=== PATIENT | male | born 1930 | race Caucasian/White ===

== ENCOUNTER 2019-12-03 06:48 | Inpatient (IN) | payer MEDICARE ==
[~2019-12-03] VITALS: Ht 165.1 cm; Wt 69.0 kg
[2019-12-03] MEDS ORDERED: OXYC1TAB23 PO (07:39)
[2019-12-03] MEDS ORDERED: HYDR12.55 PO (07:39)
[2019-12-03] MEDS ORDERED: MELO7.5T35 PO (07:39)
[2019-12-03] MEDS ORDERED: OMEP-218 PO (07:39)
[2019-12-03] MEDS ORDERED: BROV15NE NEB (07:39)
[2019-12-03] MEDS ORDERED: LOSA25TA14 PO (07:39)
[2019-12-03] MEDS ORDERED: GABA-843 PO (07:39)
[2019-12-03] MEDS ORDERED: LEVO50TA5 PO (07:39)
[2019-12-03] MEDS ORDERED: ROPI2TAB24 PO (07:39)
[2019-12-03] MEDS ORDERED: SIMV20TA22 PO (07:39)
[2019-12-03] MEDS ORDERED: HYDR-3363 PO (07:39)
[2019-12-03] MEDS ORDERED: QUET1TAB7 PO ×2 (07:39→12:56)
[2019-12-03 07:50] LABS: BASO # 0.1 10^3/uL (0.0-0.2); BASO % 0.9 % (0.0-1.0); EOS # 0.3 10^3/uL (0.0-0.5); EOS % 3.7 % (0.0-3.0); HEMATOCRIT 41.5 % (42.0-52.0); HEMOGLOBIN 12.7 g/dl (13.5-17.5); LYMPH # 1.2 10^3/uL (1.5-5.0); LYMPH % 16.6 % (24.0-44.0); MEAN CORPUSCULAR HEMOGLOBIN 28.6 pg (27.0-33.0); MEAN CORPUSCULAR HGB CONC 30.6 g/dl (32.0-36.5); MEAN CORPUSCULAR VOLUME 93.5 fl (80.0-96.0); MONO # 0.7 10^3/uL (0.0-0.8); MONO % 10.2 % (0.0-5.0); NEUTROPHILS # 4.7 10^3/uL (1.5-8.5); NEUTROPHILS % 68.2 % (36.0-66.0); PLATELET COUNT, AUTOMATED 198 10^3/uL (150-450); RED BLOOD COUNT 4.44 10^6/uL (4.30-6.10); WHITE BLOOD COUNT 6.9 10^3/uL (4.0-10.0)
[2019-12-03 07:56] LABS: ALBUMIN 3.6 GM/DL (3.2-5.2); ALT/SGPT 20 U/L (12-78); BILIRUBIN,DIRECT 0.2 MG/DL (0.0-0.2); BILIRUBIN,TOTAL 0.6 MG/DL (0.2-1.0); BLOOD UREA NITROGEN 30 MG/DL (7-18); CALCIUM LEVEL 8.5 MG/DL (8.8-10.2); CARBON DIOXIDE LEVEL 29 MEQ/L (21-32); CHLORIDE LEVEL 107 MEQ/L (98-107); CK-MB VALUE MASS 3.7 NG/ML (<3.6); CPK CREATINE PHOSPHOKINASE 200 U/L (39-308); CREATININE FOR GFR 1.01 MG/DL (0.70-1.30); GLOMERULAR FILTRATION RATE > 60.0 (>35); GLUCOSE, FASTING 85 MG/DL (70-100); MB/CK RELATIVE INDEX 1.85 (< OR =4); POTASSIUM SERUM 3.4 MEQ/L (3.5-5.1); SODIUM LEVEL 141 MEQ/L (136-145); TOTAL PROTEIN 6.3 GM/DL (6.4-8.2); TROPONIN I < 0.02 NG/ML (< 0.10)
--- NOTE | 2019-12-03 08:16 | REPVR ---
PROCEDURE INFORMATION: Exam: XR Chest, 1 View Exam date and time: 12/03/2019 8:07 AM Age: 89 years old Clinical indication: Cough; Additional info: Dyspnea/cough TECHNIQUE: Imaging protocol: XR of the chest Views: 1 view. COMPARISON: No relevant prior studies available. FINDINGS: Lungs: Bilateral perihilar and left base reticulonodular and ground-glass opacities. Pleural space: Unremarkable. No pleural effusion. No pneumothorax. Heart/Mediastinum: Large hiatal hernia. Vasculature: Atherosclerotic disease of the thoracic aorta. Bones/joints: Severe degenerative changes in the bilateral shoulders. IMPRESSION: Large hiatal hernia. Electronically signed by: Victor Hugo Soria On 12/03/2019 08:16:01 AM
[2019-12-03] MEDS: COMBIVENT RESPIMAT 100-20MCG INHALER 4GM INH SCH ×3 (08:24→09:51)
[2019-12-03] MEDS ORDERED: hydroCHLOROthiazide 12.5 MG CAPSULE PO SCH (09:00)
[2019-12-03] MEDS ORDERED: LOSARTAN 25 MG TAB PO SCH (09:00)
--- NOTE | 2019-12-03 09:50 | REPVR ---
PROCEDURE INFORMATION: Exam: US Duplex Left Lower Extremity Veins, Limited Exam date and time: 12/03/2019 9:21 AM Age: 89 years old Clinical indication: Pain; Leg, upper and leg, lower; Left; Additional info: Swelling TECHNIQUE: Imaging protocol: Real-time Duplex ultrasound of the Left Lower Extremity with 2-D caba scale, color Doppler flow and spectral waveform analysis with image documentation. Limited exam focused on the left lower extremity veins. COMPARISON: No relevant prior studies available. FINDINGS: Left deep veins: The femoral vein is duplicated distally. The common femoral vein, femoral vein, and popliteal vein are incompletely compressible containing eccentric echogenic material consistent with nonocclusive thrombus. The common femoral vein, femoral veins, and popliteal vein are patent. Left superficial veins: The saphenofemoral junction is patent without thrombus. Soft tissues: Unremarkable. IMPRESSION: Findings consistent with nonocclusive thrombus within the left common femoral, femoral, and popliteal veins. Electronically signed by: Jovany Hardin On 12/03/2019 09:49:48 AM
[2019-12-03] MEDS ORDERED: predniSONE 20 MG TAB PO ONE (10:00)
[2019-12-03] MEDS ORDERED: ISOVUE-370 76% 100ML VIAL As Ordered ONE (10:30)
--- NOTE | 2019-12-03 11:17 | REPVR ---
PROCEDURE INFORMATION: Exam: CT Angiography Chest With Contrast Exam date and time: 12/03/2019 10:19 AM Age: 89 years old Clinical indication: Shortness of breath; Additional info: Shortness of breath, DVT left leg TECHNIQUE: Imaging protocol: Computed tomographic angiography of the chest with intravenous contrast. Coronal and sagittal reformats were created and reviewed. 3D rendering (Not supervised by radiologist): MIP and/or 3D reconstructed images were created by the technologist. Radiation optimization: All CT scans at this facility use at least one of these dose optimization techniques: automated exposure control; mA and/or kV adjustment per patient size (includes targeted exams where dose is matched to clinical indication); or iterative reconstruction. Contrast material: ISOVUE 370; Contrast volume: 100 ml; Contrast route: INTRAVENOUS (IV); COMPARISON: CR PORTABLE CHEST X-RAY 12/03/2019 8:00 AM FINDINGS: Limitations: Evaluation is limited by motion. Pulmonary arteries: The central pulmonary arteries are mildly enlarged. Evaluation for pulmonary arterial embolism is limited by motion. Numerous segmental and subsegmental pulmonary arteries cannot be accurately evaluated. No lobar-sized or larger pulmonary embolism is identified. Aorta: Moderate aortic atherosclerosis. Aortic arch great vessel atherosclerotic calcifications. Fusiform dilation of the proximal descending thoracic aorta measuring 3.6 cm in diameter. Thyroid: Atrophic thyroid. Lungs: Evaluation of the lungs is limited by motion. The trachea is unremarkable. Lingular mild compressive atelectasis secondary to the hiatal hernia. Left lower lobe large compressive atelectasis secondary to the hiatal hernia. Right lower lobe moderate compressive atelectasis secondary to the hiatal hernia. Mild bilateral upper lung predominant emphysema. Left upper lobe calcified pulmonary nodule consistent with a benign remote granuloma. Minimal right upper lobe apical centrilobular micronodularity and tree-in-bud opacities. No consolidation. Pleural space: No pleural effusion. No pneumothorax. Heart: Coronary arterial atherosclerotic calcifications are present. Small fat attenuation of the left ventricular apex and interventricular septum suggestive of fibrofatty remodeling of a remote myocardial infarction. No pericardial effusion. Mediastinal space: The esophagus is mildly patulous. There is a very large esophageal hiatal hernia with an intrathoracic stomach. A portion of the transverse colon is also present within the hiatal hernia at the lower chest. Lymph nodes: No enlarged lymph nodes. Gallbladder and bile ducts: Status post cholecystectomy. Pancreas: Atrophic pancreas. Adrenals: Right adrenal 1.5 cm fat attenuation nodule with very small peripheral calcifications may represent an adrenal myelolipoma or the findings may represent sequelae of remote adrenal infection or trauma. Kidneys and ureters: The kidneys are incompletely imaged. Right kidney upper pole indeterminate exophytic 1 cm round lesion measures 38 Hounsfield units. Other hypoattenuating lesions of the imaged right kidney consistent with simple-appearing cysts. Bones/joints: Multilevel degenerative spine disease. Bilateral glenohumeral osteoarthritis. Bilateral glenohumeral joint effusions. Right acromioclavicular joint effusion. Erosion of the right distal clavicular cortex. Soft tissues: Circumscribed fat attenuation masses of the left axilla and right lower thoracic back consistent with lipomas. Right subscapularis muscle atrophy. IMPRESSION: 1. Evaluation for pulmonary arterial embolism is limited by motion. Numerous segmental and subsegmental pulmonary arteries cannot be accurately evaluated. No lobar-sized or larger pulmonary embolism is identified. 2. Very large esophageal hiatal hernia with an intrathoracic stomach and intrathoracic transverse colon. The hiatal hernia creates compressive atelectasis of the lower lungs as described. 3. Pulmonary emphysema. Findings consistent with minimal right apical bronchiolitis. 4. Right acromioclavicular joint effusion. Erosion of the right distal clavicular cortex. The findings are nonspecific. Clinical correlation for a right acromioclavicular inflammatory arthropathy or a septic joint is needed. 5. Fusiform dilation of the proximal descending thoracic aorta measuring 3.6 cm in diameter. 6. Indeterminate right kidney upper pole 1 cm lesion may represent a complex cyst or a solid mass. A renal neoplasm is not excluded. Further evaluation with follow-up renal mass protocol precontrast and postcontrast CT or MRI is recommended. 7. Please see the body of the report for other findings as described. Electronically signed by: Jovany Hardin On 12/03/2019 11:17:43 AM
[2019-12-03 12:00] VITALS: O2SAT 87
[2019-12-03] MEDS ORDERED: IPRATROPIUM 0.5MG/ALBUTEROL 2.5MG INH SOL UD 3ML (DUONEB) NEB PRN (12:15)
[2019-12-03 12:48] LABS: NT-PRO BNP 147 PG/ML (<450)
[2019-12-03] MEDS ORDERED: ROPI2TAB3 PO (12:56)
[2019-12-03 13:10] VITALS: BP 151/73
--- NOTE | 2019-12-03 13:57 | ECGEPIP ---
[facility] - ED Test Date: 2019-12-03 Pat Name: LOREN CHERRY SR Department: Room: - Gender: Male Processing Assistant: : [id number] Requested By: María Elena Booker Order Number: [id number] Reading MD: María Elena Booker Measurements Intervals Zoe Rate: 58 P: 56 IA: 151 QRS: -25 QRSD: 99 T: 51 QT: 410 QTc: 404 Interpretive Statements SINUS BRADYCARDIA WITH SINUS ARRHYTHMIA BORDERLINE LEFT AXIS DEVIATION NONSPECIFIC T-WAVE ABNORMALITY No prior Electronically Signed on 12-03-2019 13:57:13 EDT by María Elena Booker
[2019-12-03 14:00] VITALS: BP 165/82
[2019-12-03] MEDS: APIXABAN 5 MG TAB (ELIQUIS) PO SCH ×2 (14:35→19:44)
[2019-12-03] MEDS: DOXYCYCLINE HYCLATE 100 MG in D5W MINI-BAG PLUS 100 ML IV SCH (14:36)
[2019-12-03] MEDS: methylPREDNISolone 125MG 2ML VIAL IV SCH ×2 (14:36→19:38)
[2019-12-03] MEDS: IPRATROPIUM 0.5MG/ALBUTEROL 2.5MG INH SOL UD 3ML (DUONEB) NEB SCH ×2 (15:13→18:22)
[2019-12-03] MEDS ORDERED: NS 1,000 ML IV ONE (16:30)
[2019-12-03] MEDS ORDERED: amLODIPine 10 MG TAB PO ONE (16:30)
[2019-12-03] MEDS: rOPINIRole 2MG TAB PO SCH ×2 (16:43→19:43)
[2019-12-03] MEDS: NS 1,000 ML IV SCH (17:57)
[2019-12-03] MEDS: FORMOTEROL FUMARATE 20 MCG/2 ML INHALATION SOLUTION (PERFOROMIST) INH SCH (18:22)
[2019-12-03] MEDS: SIMVASTATIN 20 MG TAB PO SCH (19:44)
[2019-12-03] MEDS: QUEtiapine FUMARATE 50 MG TAB PO SCH (19:44)
[2019-12-03] MEDS: OMEPRAZOLE 20 MG CAP PO SCH (19:44)
[2019-12-03 22:00] VITALS: BP 131/73
[2019-12-04] MEDS: DOXYCYCLINE HYCLATE 100 MG in D5W MINI-BAG PLUS 100 ML IV SCH (01:12)
[2019-12-04] MEDS: methylPREDNISolone 125MG 2ML VIAL IV SCH ×4 (01:13→18:17)
[2019-12-04] MEDS: NS 1,000 ML IV SCH (03:08)
[2019-12-04 06:00] VITALS: BP 136/69
[2019-12-04 06:03] LABS: BASO % 0.1 % (0.0-1.0); HEMATOCRIT 37.5 % (42.0-52.0); HEMOGLOBIN 12.1 g/dl (13.5-17.5); LYMPH # 0.9 10^3/uL (1.5-5.0); LYMPH % 10.9 % (24.0-44.0); MEAN CORPUSCULAR HEMOGLOBIN 29.5 pg (27.0-33.0); MEAN CORPUSCULAR HGB CONC 32.3 g/dl (32.0-36.5); MEAN CORPUSCULAR VOLUME 91.5 fl (80.0-96.0); MONO # 0.3 10^3/uL (0.0-0.8); MONO % 3.3 % (0.0-5.0); NEUTROPHILS # 6.9 10^3/uL (1.5-8.5); NEUTROPHILS % 85.1 % (36.0-66.0); PLATELET COUNT, AUTOMATED 199 10^3/uL (150-450); WHITE BLOOD COUNT 8.1 10^3/uL (4.0-10.0)
[2019-12-04 06:25] LABS: BLOOD UREA NITROGEN 31 MG/DL (7-18); CALCIUM LEVEL 8.3 MG/DL (8.8-10.2); CARBON DIOXIDE LEVEL 24 MEQ/L (21-32); CHLORIDE LEVEL 111 MEQ/L (98-107); CREATININE FOR GFR 1.13 MG/DL (0.70-1.30); GLOMERULAR FILTRATION RATE > 60.0 (>35); GLUCOSE, FASTING 155 MG/DL (70-100); POTASSIUM SERUM 4.1 MEQ/L (3.5-5.1); SODIUM LEVEL 140 MEQ/L (136-145)
[2019-12-04] MEDS: FORMOTEROL FUMARATE 20 MCG/2 ML INHALATION SOLUTION (PERFOROMIST) INH SCH ×2 (07:45→19:24)
[2019-12-04] MEDS: IPRATROPIUM 0.5MG/ALBUTEROL 2.5MG INH SOL UD 3ML (DUONEB) NEB SCH ×4 (07:46→19:24)
[2019-12-04] MEDS: OMEPRAZOLE 20 MG CAP PO SCH ×2 (08:55→23:01)
[2019-12-04] MEDS: rOPINIRole 2MG TAB PO SCH ×3 (08:55→23:01)
[2019-12-04] MEDS: APIXABAN 5 MG TAB (ELIQUIS) PO SCH ×2 (08:55→23:01)
[2019-12-04] MEDS: amLODIPine 10 MG TAB PO SCH (08:55)
[2019-12-04] MEDS: QUEtiapine FUMARATE 25 MG TAB PO SCH (08:55)
[2019-12-04] MEDS ORDERED: VANCOMYCIN HCL 1,000 MG, VIAL MATE ADAPTER 1 EACH in D5W 250 ML IV ONE (11:00)
[2019-12-04] MEDS ORDERED: VANCOMYCIN HCL 500 MG in D5W MINI-BAG PLUS 100 ML IV ONE (12:00)
[2019-12-04 14:30] VITALS: BP 116/60
--- NOTE | 2019-12-04 18:15 | IPNPDOC ---
Date Seen The patient was seen on 12/04/19. Progress Note addendum to progress note: right shoulder pain plan: xray right shoulder mri right shoulder ortho consult in if persistent pain VS, I&O, 24H, Fishbone Vital Signs/I&O Vital Signs Date Time Temp Pulse Resp B/P (MAP) Pulse Ox O2 Delivery O2 Flow Rate FiO2 12/04/19 08:55 103 146/70 12/04/19 08:00 3.0 12/04/19 06:00 97.3 18 100 Nasal Cannula I&O- Last 24 Hours up to 6 AM 12/04/19 06:00 Intake Total 720 ml Output Total 1400 ml Balance -680 ml Laboratory Data 24H LABS Laboratory Tests 2 12/03/19 19:58: Lactic Acid Level 4.3*H 12/04/19 00:30: Lactic Acid Followup at 4 Hours 1.9 12/04/19 05:33: Immature Granulocyte % (Auto) 0.6, Neutrophils (%) (Auto) 85.1H, Lymphocytes (%) (Auto) 10.9L, Monocytes (%) (Auto) 3.3, Eosinophils (%) (Auto) 0.0, Basophils (%) (Auto) 0.1, Neutrophils # (Auto) 6.9, Lymphocytes # (Auto) 0.9L, Monocytes # (Auto) 0.3, Eosinophils # (Auto) 0.0, Basophils # (Auto) 0.0, Nucleated Red Blood Cells % (auto) 0.0, Anion Gap 5L, Glomerular Filtration Rate > 60.0, Calcium Level 8.3L CBC/BMP Laboratory Tests 12/04/19 05:33 Microbiology Microbiology 12/04/19 Blood Culture, Received Pending 12/03/19 Blood Culture - Preliminary, Resulted No growth after 24 hours . All specim... 12/03/19 Respiratory Virus Panel (PCR) ([facility]) - Final, Complete Human Rhinovirus/Enterovirus 12/03/19 Blood Culture - Preliminary, Resulted CRISTINA FLEMING MD Dec 04, 2019 18:15
--- NOTE | 2019-12-04 20:17 | REPVR ---
PROCEDURE INFORMATION: Exam: XR Right Humerus Exam date and time: 12/04/2019 7:16 PM Age: 89 years old Clinical indication: Pain; Shoulder; Right; Additional info: Right shoulder pain TECHNIQUE: Imaging protocol: XR Right humerus Views: 2 or more views. COMPARISON: CT ANGIO CHEST 12/03/2019 10:15:01 AM FINDINGS: Bones/joints: There is no fracture or dislocation of the right humerus. There is severe osteoarthritis involving the right glenohumeral joint. There has been resorption of the distal end of the right clavicle. There are bony proliferative changes arising from the right acromioclavicular joint. Soft tissues: Unremarkable. IMPRESSION: 1. No fracture or dislocation of the right humerus. 2. Severe osteoarthritis of the right glenohumeral joint. 3. Resorption of the distal end of the right clavicle, which may be secondary to a surgical resection, posttraumatic osteolysis, or an erosive arthropathy. Electronically signed by: Paolo Willis On 12/04/2019 20:17:33 PM
--- NOTE | 2019-12-04 21:40 | REPVR ---
PROCEDURE INFORMATION: Exam: MR Right Upper Extremity Joint Without Contrast; Shoulder Exam date and time: 12/04/2019 8:46 PM Age: 89 years old Clinical indication: Pain; Shoulder; Right; Patient HX: Very limited exam due to respiratory motion. Best PT could do. Additional info: Right shoulder pain TECHNIQUE: Imaging protocol: MR of the Right upper extremity without contrast. Exam focused on the shoulder. COMPARISON: No relevant prior studies available. FINDINGS: Limitations: Motion artifact severely degrades the image quality of all of the sequences obtained. Bones and cartilage: There is no fracture or dislocation of the right shoulder. There is severe osteoarthritis of the right glenohumeral joint. There are large regions of full-thickness cartilage loss involving the right humeral head and glenoid with associated subchondral edema, subchondral sclerosis, and marginal spurring. There is resorption of the distal end of the right clavicle. Bony proliferative changes are noted arising from the right acromioclavicular joint. Joint spaces: There is a moderate size right glenohumeral joint effusion. Glenoid labrum: Suboptimally evaluated secondary to extensive motion artifact. Bursae: There is a large amount of fluid in the right subacromial subdeltoid bursa. Supraspinatus tendon: There is a high-grade partial intrasubstance tear of the distal anterior fibers of the right supraspinatus tendon, which measures approximately 5 mm in medial to lateral dimension by 5 mm in anterior to posterior dimension (frame 8 of the coronal T2 with fat saturation series 701 and frame 6 of the sagittal T2 with fat saturation series 801). There is increased T2 signal in the supraspinatus tendon and myotendinous junction, which is compatible with a strain (frames 9-13 of the coronal T2 with fat saturation series 701). There is a 14 mm subcortical cyst medial to the footplate insertion of the supraspinatus tendon. Infraspinatus tendon: No obvious tear allowing for extensive motion artifact. There is a 13 mm subcortical cysts medial to the footplate insertion of the infraspinatus tendon. Subscapularis tendon: No obvious tear allowing for extensive motion artifact. Teres minor tendon: No obvious tear allowing for extensive motion artifact. Tendon of biceps brachii: Suboptimally evaluated secondary to extensive motion artifact. Glenohumeral ligaments: Suboptimally evaluated secondary to extensive motion artifact. Coracoacromial ligament: Suboptimally evaluated secondary to extensive motion artifact. Coracohumeral ligament: Suboptimally evaluated secondary to extensive motion artifact. Muscles: There is severe fatty atrophy of the right subscapularis muscle. Soft tissues: There is a 3.4 cm x 3.7 cm x 2.5 cm fluid collection in the soft tissues superior to the right acromioclavicular joint. There is soft tissue swelling and edema along the superior aspect the right shoulder. Other findings: No mass or cyst is noted in the suprascapular notch, spinoglenoid notch, or quadrilateral space. IMPRESSION: 1. High-grade partial intrasubstance tear of the distal anterior fibers of the right supraspinatus tendon, which measures approximately 5 mm in medial to lateral dimension by 5 mm in anterior to posterior dimension and a strain of the supraspinatus tendon and myotendinous junction. 2. 14 mm subcortical cyst medial to the footplate insertion of the right supraspinatus tendon. 3. Severe osteoarthritis of the right glenohumeral joint and a moderate size right glenohumeral joint effusion. 4. Large amount of fluid in the right subacromial subdeltoid bursa, which may represent subacromial subdeltoid bursitis. 5. 3.4 cm x 3.7 cm x 2.5 cm fluid collection in the soft tissues superior to the right acromioclavicular joint and there is soft tissue swelling and edema along the superior aspect of the right shoulder. 6. Resorption of the distal end of the right clavicle, which may be secondary to a surgical resection, posttraumatic osteolysis, or an erosive arthropathy. 7. Severe fatty atrophy of the right subscapularis muscle. * NOTE: Extensive motion artifact severely degrades the image quality of all of the sequences obtained. Electronically signed by: Paolo Willis On 12/04/2019 21:40:07 PM
[2019-12-04 22:00] VITALS: BP 110/70
[2019-12-04] MEDS: SIMVASTATIN 20 MG TAB PO SCH (23:01)
[2019-12-04] MEDS: QUEtiapine FUMARATE 50 MG TAB PO SCH (23:01)
[2019-12-05] MEDS: methylPREDNISolone 125MG 2ML VIAL IV SCH ×3 (01:45→18:26)
[2019-12-05 06:00] VITALS: BP 98/60
[2019-12-05 06:13] LABS: BASO % 0.1 % (0.0-1.0); HEMOGLOBIN 12.2 g/dl (13.5-17.5); LYMPH # 0.8 10^3/uL (1.5-5.0); LYMPH % 5.6 % (24.0-44.0); MEAN CORPUSCULAR HEMOGLOBIN 29.4 pg (27.0-33.0); MEAN CORPUSCULAR HGB CONC 32.1 g/dl (32.0-36.5); MEAN CORPUSCULAR VOLUME 91.6 fl (80.0-96.0); MONO # 0.5 10^3/uL (0.0-0.8); MONO % 3.6 % (0.0-5.0); NEUTROPHILS # 12.2 10^3/uL (1.5-8.5); PLATELET COUNT, AUTOMATED 244 10^3/uL (150-450); RED BLOOD COUNT 4.15 10^6/uL (4.30-6.10); WHITE BLOOD COUNT 13.5 10^3/uL (4.0-10.0)
[2019-12-05 06:40] LABS: BLOOD UREA NITROGEN 36 MG/DL (7-18); CALCIUM LEVEL 8.5 MG/DL (8.8-10.2); CARBON DIOXIDE LEVEL 27 MEQ/L (21-32); CHLORIDE LEVEL 109 MEQ/L (98-107); CREATININE FOR GFR 1.16 MG/DL (0.70-1.30); GLOMERULAR FILTRATION RATE > 60.0 (>35); GLUCOSE, FASTING 142 MG/DL (70-100); POTASSIUM SERUM 3.8 MEQ/L (3.5-5.1); SODIUM LEVEL 142 MEQ/L (136-145)
[2019-12-05 06:43] VITALS: BP 140/72
[2019-12-05] MEDS: IPRATROPIUM 0.5MG/ALBUTEROL 2.5MG INH SOL UD 3ML (DUONEB) NEB SCH ×4 (07:28→19:38)
[2019-12-05] MEDS: FORMOTEROL FUMARATE 20 MCG/2 ML INHALATION SOLUTION (PERFOROMIST) INH SCH ×2 (07:28→19:38)
[2019-12-05] MEDS ORDERED: FLUBLOK(EGG FREE)(QUAD)INFLUENZA VACC 0.5ML SYRINGE 18YRS & OLDER IM ONE (09:00)
[2019-12-05] MEDS: rOPINIRole 2MG TAB PO SCH ×3 (09:03→22:13)
[2019-12-05] MEDS: APIXABAN 5 MG TAB (ELIQUIS) PO SCH ×2 (09:04→22:13)
[2019-12-05] MEDS: OMEPRAZOLE 20 MG CAP PO SCH ×2 (09:05→22:13)
[2019-12-05] MEDS: QUEtiapine FUMARATE 25 MG TAB PO SCH (09:09)
[2019-12-05] MEDS: amLODIPine 10 MG TAB PO SCH (09:09)
[2019-12-05] MEDS ORDERED: VANCOMYCIN HCL 750 MG, VIAL MATE ADAPTER 1 EACH in D5W 250 ML IV SCH (11:00)
[2019-12-05] MEDS ORDERED: VANCOMYCIN HCL 500 MG in D5W MINI-BAG PLUS 100 ML IV SCH (12:00)
[2019-12-05 14:00] VITALS: BP 142/72
--- NOTE | 2019-12-05 21:12 | IPNPDOC ---
Subjective Date Seen The patient was seen on 12/05/19. Subjective Chief Complaint/HPI feels much better, Says sob much improved and also says leg swelling much improved. He feels like he will be able to walk today. Objective Physical Examination General Exam: Positive: Alert, Cooperative, No Acute Distress Eye Exam: Positive: PERRLA, Conjunctiva & lids normal, EOMI; Negative: Sclera icteric ENT Exam: Positive: Atraumatic, Mucous membr. moist/pink, Pharynx Normal Neck Exam: Positive: Supple; Negative: JVD, thyromegaly Chest Exam: Positive: Rhonchi, Wheezing Heart Exam: Positive: Rate Normal, Regular Rhythm, Normal S1, Normal S2; Negative: Murmurs, Rubs Abdomen Exam: Positive: Normal bowel sounds, Soft; Negative: Tenderness, Hepatospenomegaly Extremity Exam: Positive: Edema; Negative: Clubbing, Cyanosis Skin Exam: Positive: Nl turgor and temperature; Negative: Rash, Breakdown Assessment /Plan Assessment 89 year old male with COPD, chronic respiratory failure with hypoxia, 3l oxygen at home, HTN, HLD, OA, Prostate cancer, chronic right shoulder pain and swelling, 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 He was found to have Rhino virus respiratory tract infection, COPD exacerbation and acute Left leg DVT. Acute DVT started on AC Eliquis COPD exacerbation due to viral resp tract infection on solumedrol, formoterol, duonebs. on Vancomycin at present. Lactic acidosis due to increased work of breathing. Chronic respiratory failure with hypoxia at baseline oxygen. Right shoulder pain and swelling MRI noted has OA, bursitis and tear of supraspinatus tendon all looks chronic patient reports that at one time surgery was offered but was told high risk so he did not want to pursue it. will discuss with ortho for now pain control with tylenol. Hypertension amlodipine Hyperlipidemia statin Positive blood cultures1/3 bottles gm +ve rods and gm+ve cocci in cluster probably contaminant will continue vancomycin till final cultures are out. Restless legs ropinirole Anxiety/ insomnia seroquel Plan/VTE VTE Prophylaxis Ordered?: Yes VS, I&O, 24H, Fishbone Vital Signs/I&O Vital Signs Date Time Temp Pulse Resp B/P (MAP) Pulse Ox O2 Delivery O2 Flow Rate FiO2 12/05/19 14:00 97.7 83 20 142/72 (95) 97 Nasal Cannula 3.0 I&O- Last 24 Hours up to 6 AM 12/05/19 07:00 Intake Total 3510 ml Output Total 1445 ml Balance 2065 ml Laboratory Data 24H LABS Laboratory Tests 2 12/05/19 05:41: Immature Granulocyte % (Auto) 0.7, Neutrophils (%) (Auto) 90.0H, Lymphocytes (%) (Auto) 5.6L, Monocytes (%) (Auto) 3.6, Eosinophils (%) (Auto) 0.0, Basophils (%) (Auto) 0.1, Neutrophils # (Auto) 12.2H, Lymphocytes # (Auto) 0.8L, Monocytes # (Auto) 0.5, Eosinophils # (Auto) 0.0, Basophils # (Auto) 0.0, Nucleated Red Blood Cells % (auto) 0.0, Anion Gap 6L, Glomerular Filtration Rate > 60.0, C alcium Level 8.5L CBC/BMP Laboratory Tests 12/05/19 05:41 Microbiology Microbiology 12/04/19 Blood Culture - Preliminary, Resulted No growth after 24 hours . All specim... 12/03/19 Blood Culture - Preliminary, Resulted No Growth after 48 hours. All Specime... 12/03/19 Respiratory Virus Panel (PCR) ([facility]) - Final, Complete Human Rhinovirus/Enterovirus 12/03/19 Blood Culture - Preliminary, Resulted JACQUELINE DILLON MD Dec 05, 2019 21:12
[2019-12-05] MEDS ORDERED: AZITHROMYCIN 250MG TABLET PO SCH (21:15)
[2019-12-05 22:00] VITALS: BP 106/69
[2019-12-05] MEDS: QUEtiapine FUMARATE 50 MG TAB PO SCH (22:13)
[2019-12-05] MEDS: SIMVASTATIN 20 MG TAB PO SCH (22:14)
[2019-12-05] MEDS: ACETAMINOPHEN 500 MG TAB PO SCH (22:18)
[2019-12-06 06:00] VITALS: BP 105/71
[2019-12-06] MEDS: methylPREDNISolone 125MG 2ML VIAL IV SCH (07:01)
[2019-12-06 07:32] LABS: BASO % 0.1 % (0.0-1.0); HEMATOCRIT 38.3 % (42.0-52.0); HEMOGLOBIN 12.1 g/dl (13.5-17.5); LYMPH # 0.8 10^3/uL (1.5-5.0); LYMPH % 7.1 % (24.0-44.0); MEAN CORPUSCULAR HEMOGLOBIN 28.8 pg (27.0-33.0); MEAN CORPUSCULAR HGB CONC 31.6 g/dl (32.0-36.5); MEAN CORPUSCULAR VOLUME 91.2 fl (80.0-96.0); MONO # 0.5 10^3/uL (0.0-0.8); MONO % 4.3 % (0.0-5.0); NEUTROPHILS # 9.6 10^3/uL (1.5-8.5); NEUTROPHILS % 87.4 % (36.0-66.0); PLATELET COUNT, AUTOMATED 238 10^3/uL (150-450)
[2019-12-06] MEDS: FORMOTEROL FUMARATE 20 MCG/2 ML INHALATION SOLUTION (PERFOROMIST) INH SCH (07:42)
[2019-12-06] MEDS: IPRATROPIUM 0.5MG/ALBUTEROL 2.5MG INH SOL UD 3ML (DUONEB) NEB SCH (07:45)
[2019-12-06 07:54] LABS: BLOOD UREA NITROGEN 48 MG/DL (7-18); CALCIUM LEVEL 8.7 MG/DL (8.8-10.2); CARBON DIOXIDE LEVEL 27 MEQ/L (21-32); CHLORIDE LEVEL 112 MEQ/L (98-107); CREATININE FOR GFR 1.06 MG/DL (0.70-1.30); GLOMERULAR FILTRATION RATE > 60.0 (>35); GLUCOSE, FASTING 126 MG/DL (70-100); POTASSIUM SERUM 3.9 MEQ/L (3.5-5.1); SODIUM LEVEL 147 MEQ/L (136-145)
[2019-12-06] MEDS: OMEPRAZOLE 20 MG CAP PO SCH (09:09)
[2019-12-06] MEDS: APIXABAN 5 MG TAB (ELIQUIS) PO SCH (09:09)
[2019-12-06] MEDS: QUEtiapine FUMARATE 25 MG TAB PO SCH (09:10)
[2019-12-06] MEDS: rOPINIRole 2MG TAB PO SCH (09:10)
[2019-12-06] MEDS: ACETAMINOPHEN 500 MG TAB PO SCH (09:11)
[2019-12-06 09:12] VITALS: BP 175/81
[2019-12-06] MEDS: amLODIPine 10 MG TAB PO SCH (09:12)
--- NOTE | 2019-12-06 10:14 | HPE ---
DATE OF ADMISSION: 12/03/2019 CHIEF COMPLAINT: Shortness of breath. 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 He denies any headaches, sore throat, nausea, vomiting, abdominal pain, chest pain, pressure or tightness, palpitations, lightheadedness or dizziness. Despite using 3 liters of oxygen and inhalers at home, he has had no improvement. He has also noted increasing left lower extremity edema and pain when he ambulates. Noticed increase in swelling and redness, prompting him to come into the emergency room. At baseline, he is able to walk from the kitchen to the bedroom all on the first floor. He does not do much at home and has someone to help him from 10 a.m. to noontime every day in order to get him bathed, make his bed and clean the house. The patient has a daughter who is the healthcare proxy. He otherwise has no other new complaints. Denies bright red blood per rectum, melena, black tarry stools. Denies dysuria, urgency, frequency, fever, chills or flank pain. All other systems, 12-point systems obtained all of which are negative. PAST MEDICAL HISTORY: 1. Deep venous thrombosis (DVT) prophylaxis in 2006. 2. Left-sided sciatica. 3. Leg cramps. 4. Prostate cancer 5. Asthma 6. Hypertension. 7. Chronic obstructive pulmonary disease (COPD). 8. Depression 9. Osteoarthritis bilateral shoulders, knees. 10. Esophageal hernia. 11. Right AC effusion. 12. Right kidney lesion. 13. Abnormal electrocardiogram (EKG) with LAD. 14. Active tobacco use. 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 Quit tobacco in 2002 17. Hypothyroidism. 18. 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 FAMILY HISTORY: Father during [place], had hypertension and cancer. Mother of chronic obstructive pulmonary disease (COPD). ALLERGIES: CODIENE AND DARVON HOME MEDICATIONS: Gabapentin 300 mg daily, Hydrochlorothiazide 12.5 mg daily, hydroxyzine 25m g b.i.d., Synthroid 50 mcg daily, levothyroxine 50 mcg daily, losartan 25 mg daily, meloxicam 7.5 mg, omeprazole 20 mg b.i.d., Percocet one tab 5/325 mg as needed, quetiapine 25 mg daily, simvastatin 20 mg daily, Brovana inhaled b.i.d., ropinirole 2 mg daily. SOCIAL HISTORY: Previously smoked and chewed tobacco, quit in 2002 when he was told that his toe was blue and would fall off if he did not stop smoking. Healthcare proxy is his daughter, Shireen Garay, phone number is [phone]. No alcohol use. 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 Family history as above. REVIEW OF SYSTEMS: Per history of present illness, 12-point system otherwise negative. PHYSICAL EXAMINATION: Temperature 97.7, pulse 66, respiratory rate 24, blood pressure 123/50, 87% on 3 liters nasal canula. General: The patient is awake, alert and oriented to person, place and time, answers questions appropriately. No conversational dyspnea. The patient has dentures. No jugular venous distention (JVD), thyromegaly or cervical lymphadenopathy. Lungs are diminished, prolonged expiration. Bilateral wheezing. Heart: S1, S2, sinus rhythm. No murmurs, rubs or gallops. Abdomen: Soft, nontender. Positive bowel sounds. Extremities: Left lower extremity edematous, some erythema, chronic venous changes. Right lower extremity trace edema. Right shoulder some joint effusion at the AC joint. LABORATORY DATA: White count 6.9, hemoglobin 12, hematocrit 41, platelet count 198. Sodium 141, potassium 3.4, chloride 107, bicarbonate 29, BUN 30, creatinine 1, glucose 85, calcium of 8.5. Total bilirubin is 0.6, direct bilirubin is 0.2, AST 16, ALT 20, alkaline phosphatase 111. CK 200, MB fraction 3.7. Troponin less than 0.02, total protein of 6.3. Respiratory panel: Human rhinovirus/enterovirus. Blood cultures pending. CT chest: No lobar size or larger pulmonary embolus (PE), very large esophageal hiatal hernia with compressive atelectasis of the lower lungs. Pulmonary emphysema. Right apical bronchiolitis. Right AC joint effusion. Fusiform dilation of proximal descending thoracic aorta, 3.6 cm. Indeterminate right kidney pole 1 cm lesion, could be cyst or mass. Renal neoplasm is excluded. Follow up renal mass protocol with pre and post contrast CT or MRI. ASSESSMENT AND PLAN: This is an 89-year-old male with history of chronic obstructive pulmonary disease (COPD), asthma, hypertension, depression, left- sided sciatica, leg cramps, prostate cancer, presents to the emergency room with 2 to 3 week worsening shortness of breath, cough productive of sputum, no fevers, chills and a runny nose, along with a left lower extremity swelling edema and pain with ambulation, found to have a left lower extremity deep venous thrombosis (DVT) on vascular ultrasound showing nonocclusive thrombus within the left common femoral, femoral and popliteal veins. ACTIVE ISSUES ARE FOLLOWS: 1. Acute chronic obstructive pulmonary disease (COPD) exacerbation. 2. Chronic hypoxic respiratory failure. 3. Left common femoral, femoral and popliteal vein nonocclusive thrombus. 4. Deep venous thrombosis (DVT). 5. Renal mass, 1 cm cyst versus solid, needs workup. 6. Right acromioclavicular (AC) joint effusion. 7. Human rhinovirus/enterovirus viral infection. 8. History of tobacco abuse with peripheral arterial disease. 9. History of prostate cancer, status post prostatectomy. 10. Depression. 11. Chronic left-sided sciatica. 12. Restless leg syndrome. 13. Hypertension. 14. Abnormal electrocardiogram (EKG) with left axis deviation. PLAN: The patient will be admitted to medical-surgical floor. He will be continued on Solu-Medrol intravenously q 6 hours, nebulizer treatments q.i.d. and q one to two hours for shortness of breath, doxycycline for antibiotics, titrate oxygen levels from 88 to 92%. For the patient's deep venous thrombosis (DVT), he will be given Eliquis renally dosed if needed. If persistent pain or the patient's leg becomes cyanotic, may need to have vascular surgery to see if thrombectomy is warranted. At this time, the patient has a large esophageal hiatal hernia. He will be continued on his home medications of proton pump inhibitor. He is started on anticoagulation, Eliquis, to be renally dosed. He may be resumed on his Synthroid, losartan, simvastatin and Brovana and ropinirole as well. Healthcare proxy is the patient's daughter, EASTON
--- NOTE | 2019-12-06 10:16 | IPN ---
DATE: 12/04/2019 SUBJECTIVE: Overnight no fever or chills, continues to have cough productive of yellow-green sputum. Shortness of breath is slightly improved. No pain in the left lower extremity. No other issues per nursing. PHYSICAL EXAMINATION: VITAL SIGNS: Temperature is 97.3 pulse is 70, respiratory rate is 18, blood pressure is 136/69, 100% on 3 liters nasal cannula. GENERAL: The patient is awake, alert and oriented x3, answering questions appropriately. No use of respiratory or accessory muscle, nasal flaring or tracheal deviation. NECK: No JVD. HEENT: Patient has some rhinorrhea present at the bedside and blowing his nose. LUNGS: Diminished, bilateral wheezing, prolonged expiration. HEART: S1 and S2, sinus rhythm. ABDOMEN: Soft, nontender and nondistended. EXTREMITIES: Left lower extremity is much more edematous than the right. No erythema. MUSCULOSKELETAL: Left hand 2nd, 3rd, and 4th digits amputated with DIP amputations due to traumatic injury. Respiratory panel: Rhinovirus. Blood culture one of two sets of blood cultures gram positive cocci in clusters. LABORATORY DATA: White count is 8, hemoglobin is 12, hematocrit is 37, platelet count is 199,000. Sodium 140, potassium 4, chloride 111, bicarbonate 24, BUN 31, creatinine 1.1, glucose is 155, lactic acid 1.9. Microbiology: Respiratory panel, human Rhinovirus one of two sets, blood culture gram positive cocci. CT of chest: No pulmonary embolism. Right kidney lesion may be a complex cyst or a mass. Renal neoplasm excluded. Renal mass protocol pre-contrast and post- contrast CT or MRI. Descending thoracic fusiform dilation 3.6 cm, erosion of the right shoulder. ASSESSMENT AND PLAN: An 89-year-old admitted for COPD exacerbation, left lower extremity DVT, history of DVT, previously on warfarin, left total knee replacement, prostate cancer with prostatectomy, hernia repair, appendectomy, traumatic amputation of the left digits of the hand. IMPRESSION: 1. COPD exacerbation. 2. Left lower extremity DVT. 3. Lactic acidosis, resolved. 4. History of prostate cancer status post prostatectomy. 5. Gait abnormality. 6. Positive blood culture for gram positive cocci in clusters. PLAN: Patient is empiric Vancomycin until blood culture results are finalized. He is on doxycycline for COPD exacerbation, Solumedrol, diuretics have been held due to lactic acidosis, he is continued on Eliquis loading dose 10 b.i.d. and then 5 b.i.d. on the for lower extremity DVT. ARU has been consulted. He is resumed on all of his other home medications. [facility]
[2019-12-06] MEDS ORDERED: PRED10TA2 PO (10:45)
[2019-12-06] MEDS ORDERED: DOXY-350 PO (10:45)
[2019-12-06] MEDS ORDERED: ACET-683 PO (10:45)
[2019-12-06] MEDS ORDERED: ELIQ5TAB PO (10:45)
--- NOTE | 2019-12-06 15:55 | DS.PDOC ---
Discharge Summary General Date of Admission Dec 03, 2019 at 12:08 Date of Discharge 12/06/19 Discharge Summary PROCEDURES PERFORMED DURING STAY: [None]. DISCHARGE DIAGNOSES: Acute left leg DVT Respiratory viral infection with Human rhinovirus COPD exacerbation Lacticacidosis Right shoulder rotator cuff tear, bursitis Positive blood cultures contaminant SECONDARY DIAGNOSIS: Chronic respiratory failure with hypoxia Hypertension HLD RLS Anxiety/ insomnia OA COMPLICATIONS/CHIEF COMPLAINT: Copd Exacerbation Dvt. HOSPITAL COURSE: 89 year old male with COPD, chronic respiratory failure with hypoxia, 3l oxygen at home, HTN, HLD, OA, Prostate cancer, chronic right shoulder pain and swelling, 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 He was found to have Rhino virus respiratory tract infection, COPD exacerbation and acute Left leg DVT. Acute DVT started on AC Eliquis COPD exacerbation due to viral resp tract infection Prednisone taper, formoterol, duonebs. Doxycycline Lactic acidosis due to increased work of breathing. Chronic respiratory failure with hypoxia at baseline oxygen. Right shoulder pain and swelling Chronic rotator cuff tear with bursitis, OA MRI noted has OA, bursitis and tear of supraspinatus tendon all looks chronic patient reports that at one time surgery was offered but was told high risk so he did not want to pursue it. discussed with ortho Dr Morales. Will refer to ortho clinic. pain controlled with tylenol, meloxicam, gabapentin, percocet Hypertension continue losartan and HCTZ. Hyperlipidemia statin Positive blood cultures1/3 bottles gm +ve rods and gm+ve cocci in cluster Staph hominis. probably contaminant Restless legs ropinirole Anxiety/ insomnia seroquel DISCHARGE MEDICATIONS: Please see below. ALLERGIES: Please see below. PHYSICAL EXAMINATION ON DISCHARGE: VITAL SIGNS: Please see below. General Exam: Positive: Alert, Cooperative, No Acute Distress Eye Exam: Positive: PERRLA, Conjunctiva & lids normal, EOMI; Negative: Sclera icteric ENT Exam: Positive: Atraumatic, Mucous membr. moist/pink, Pharynx Normal Neck Exam: Positive: Supple; Negative: JVD, thyromegaly Chest Exam: Positive: Rhonchi, Wheezing Heart Exam: Positive: Rate Normal, Regular Rhythm, Normal S1, Normal S2; Negative: Murmurs, Rubs Abdomen Exam: Positive: Normal bowel sounds, Soft; Negative: Tenderness, Hepatosplenomegaly Extremity Exam: Positive: Edema; Negative: Clubbing, Cyanosis Skin Exam: Positive: Nl turgor and temperature; Negative: Rash, Breakdown LABORATORY DATA: Please see below. ACTIVITY: [As tolerated]. DIET: As tolerated DISPOSITION: 01 Home, Self-Care. DISCHARGE INSTRUCTIONS: PMD in 2 weeks ITEMS TO FOLLOWUP ON ON OUTPATIENT: Final blood cultures DISCHARGE CONDITION: [Stable]. TIME SPENT ON DISCHARGE: 35 minutes. Vital Signs/I&Os Vital Signs Date Time Temp Pulse Resp B/P (MAP) Pulse Ox O2 Delivery O2 Flow Rate FiO2 12/06/19 09:12 97 175/81 12/06/19 09:00 3.0 12/06/19 06:00 97.5 19 97 Nasal Cannula I&O- Last 24 Hours up to 6 AM 12/06/19 06:00 Intake Total 2505 ml Output Total 275 ml Balance 2230 ml Laboratory Data Labs 24H Laboratory Tests 2 12/06/19 07:18: Immature Granulocyte % (Auto) 1.1, Neutrophils (%) (Auto) 87.4H, Lymphocytes (%) (Auto) 7.1L, Monocytes (%) (Auto) 4.3, Eosinophils (%) (Auto) 0.0, Basophils (%) (Auto) 0.1, Neutrophils # (Auto) 9.6H, Lymphocytes # (Auto) 0.8L, Monocytes # (Auto) 0.5, Eosinophils # (Auto) 0.0, Basophils # (Auto) 0.0, Nucleated Red Blood Cells % (auto) 0.0, Anion Gap 8, Glomerular Filtration Rate > 60.0, Calcium Level 8.7L CBC/BMP Laboratory Tests 12/06/19 07:18 Microbiology Microbiology 12/04/19 Blood Culture - Preliminary, Resulted No Growth after 48 hours. All Specime... 12/03/19 Blood Culture - Preliminary, Resulted No Growth after 72 hours. All specime... 12/03/19 Respiratory Virus Panel (PCR) ([facility]) - Final, Complete Human Rhinovirus/Enterovirus 12/03/19 Blood Culture - Preliminary, Resulted Staphylococcus Hominis Ssp Michael Discharge Medications Scheduled Acetaminophen (Acetaminophen) 500 Mg Tablet, 1,000 MG PO BID Apixaban (Eliquis) 5 Mg Tablet, 5 MG PO ASDIRECTED Take 2 tabs twice a day for 3 days then take 1 tab twice a day to continue Arformoterol Tartrate (Brovana) 15 Mcg/2 Ml Vial.neb, 1 VIAL NEB BID, (Reported) Doxycycline Monohydrate (Doxycycline) 100 Mg Capsule, 100 MG PO BID Gabapentin (Gabapentin) 300 Mg Capsule, 300 MG PO DAILY, (Reported) Hydrochlorothiazide (Hydrochlorothiazide) 12.5 Mg Tablet, 12.5 MG PO DAILY, (Reported) Hydroxyzine HCl (Hydroxyzine HCl) 25 Mg Tablet, 25 MG PO BID, (Reported) Levothyroxine Sodium (Levothyroxine Sodium) 50 Mcg Tablet, 50 MCG PO DAILY, (Reported) Losartan Potassium (Losartan Potassium) 25 Mg Tablet, 25 MG PO DAILY, (Reported) Meloxicam (Meloxicam) 7.5 Mg Tablet, 7.5 MG PO DAILY, (Reported) Omeprazole (Omeprazole) 20 Mg Capsule.dr, 20 MG PO BID, (Reported) Prednisone (Prednisone) 10 Mg Tablet, 10 MG PO TAPER Take 4 tabs daily x 3 days, then 3 tabs daily x 3 days, then 2 tabs daily x 3 days, then 1 tab daily x 3 days and stop Quetiapine Fumarate (Quetiapine Fumarate) 25 Mg Tablet, 25 MG PO DAILY, (Reported) Quetiapine Fumarate (Quetiapine Fumarate) 25 Mg Tablet, 50 MG PO QHS, (Reported) Ropinirole HCl (Ropinirole HCl) 2 Mg Tablet, 2 MG PO TID, (Reported) Simvastatin (Simvastatin) 20 Mg Tablet, 20 MG PO QHS, (Reported) Scheduled PRN Oxycodone HCl/Acetaminophen (Oxycodone-Acetaminophen 5-325) 1 Each Tablet, 1 TAB PO PRN PRN for PAIN OR DYSPNEA, (Reported) Allergies Coded Allergies: codeine (Verified Allergy, Unknown, 12/03/19) JACQUELINE DILLON MD Dec 06, 2019 15:55
[2019-12-10] MEDS ORDERED: APIXABAN 5 MG TAB (ELIQUIS) PO SCH (09:00)
== END 2019-12-06 14:34 | disposition home health service (06) | DRG 300 ==
LOC: M ED 06:48 → EDBD 06:48 → M ED INP 12:08 → ENRESERV 12:39 → M MS5PR 13:05
PROVIDERS: ADMIT General Practice; ATTEND Internal Medicine Nephrology
DX: I82.412 Acute embolism and thrombosis of left femoral vein (principal); J96.11 Chronic respiratory failure with hypoxia; E87.2 Acidosis; J44.1 Chronic obstructive pulmonary disease with (acute) exacerbation; I82.432 Acute embolism and thrombosis of left popliteal vein; I10 Essential (primary) hypertension; M54.32 Sciatica, left side; Z85.46 Personal history of malignant neoplasm of prostate; R25.2 Cramp and spasm; Z89.022 Acquired absence of left finger(s); F32.9 Major depressive disorder, single episode, unspecified; M19.011 Primary osteoarthritis, right shoulder; M19.012 Primary osteoarthritis, left shoulder; M17.0 Bilateral primary osteoarthritis of knee; R94.31 Abnormal electrocardiogram [ECG] [EKG]; K44.9 Diaphragmatic hernia without obstruction or gangrene; M25.411 Effusion, right shoulder; G25.81 Restless legs syndrome; N28.89 Other specified disorders of kidney and ureter; I73.1 Thromboangiitis obliterans [Buerger's disease]; E03.9 Hypothyroidism, unspecified; Z87.891 Personal history of nicotine dependence; Z96.652 Presence of left artificial knee joint; Z90.49 Acquired absence of other specified parts of digestive tract; Z99.81 Dependence on supplemental oxygen; Z79.899 Other long term (current) drug therapy; R26.89 Other abnormalities of gait and mobility; M75.51 Bursitis of right shoulder; Z20.828 Contact with and (suspected) exposure to other viral communicable diseases

== ENCOUNTER 2019-12-08 12:26 | Inpatient (IN) | payer MEDICARE ==
[~2019-12-08] VITALS: Ht 175.3 cm; Wt 76.5 kg
[~2019-12-08 12:26] MED LIST: ACET-683 PO; BROV15NE NEB; DOXY-350 PO; ELIQ5TAB PO; GABA-843 PO; HYDR-3363 PO; HYDR12.55 PO; LEVO50TA5 PO; LOSA25TA14 PO; MELO7.5T35 PO; OMEP-218 PO; OXYC1TAB23 PO; PRED10TA2 PO; QUET1TAB7 PO; ROPI2TAB24 PO; ROPI2TAB3 PO; SIMV20TA22 PO
[2019-12-08] MEDS ORDERED: NS 1,000 ML IV SCH (13:15)
[2019-12-08 13:25] LABS: VENOUS BASE EXCESS -0.9 (-2.0-2.0); VENOUS O2 SATURATION 84.2 % (60.0-80.0); VENOUS PARTIAL PRESSURE CO2 46.4 mmHg (38.0-50.0); VENOUS PARTIAL PRESSURE O2 50.7 mmHg (30.0-50.0); VENOUS STANDARD HCO3 23.4 MEQ/L; VENOUS TOTAL CO2 26.5 MEQ/L (24.0-28.0)
[2019-12-08 13:30] LABS: BASO # 0.1 10^3/uL (0.0-0.2); BASO % 0.6 % (0.0-1.0); EOS % 0.1 % (0.0-3.0); HEMATOCRIT 41.4 % (42.0-52.0); LYMPH # 0.8 10^3/uL (1.5-5.0); LYMPH % 9.5 % (24.0-44.0); MEAN CORPUSCULAR HEMOGLOBIN 28.8 pg (27.0-33.0); MEAN CORPUSCULAR HGB CONC 31.4 g/dl (32.0-36.5); MEAN CORPUSCULAR VOLUME 91.6 fl (80.0-96.0); MONO # 0.3 10^3/uL (0.0-0.8); MONO % 3.3 % (0.0-5.0); NEUTROPHILS # 7.1 10^3/uL (1.5-8.5); NEUTROPHILS % 82.9 % (36.0-66.0); PLATELET COUNT, AUTOMATED 230 10^3/uL (150-450); RED BLOOD COUNT 4.52 10^6/uL (4.30-6.10); WHITE BLOOD COUNT 8.6 10^3/uL (4.0-10.0)
[2019-12-08] MEDS ORDERED: IPRATROPIUM 0.5MG/ALBUTEROL 2.5MG INH SOL UD 3ML (DUONEB) NEB ONE (13:30)
--- NOTE | 2019-12-08 13:57 | REPVR ---
PROCEDURE INFORMATION: Exam: XR Chest, 1 View Exam date and time: 12/08/2019 1:47 PM Age: 89 years old Clinical indication: Cough; Additional info: Dyspnea/cough TECHNIQUE: Imaging protocol: XR of the chest Views: Frontal portable sitting upright view of the chest. COMPARISON: CR PORTABLE CHEST X-RAY 12/03/2019 8:00 AM FINDINGS: Tubes, catheters and devices: EKG leads are present overlying the chest. Lungs: Increased left basilar pulmonary partial atelectasis/infiltrate. Left upper lobe calcified pulmonary parenchymal granuloma. Mild right lateral basilar subsegmental atelectasis. Pleural space: No definite pleural effusion. No pneumothorax. Heart/Mediastinum: Stable borderline cardiomegaly. A large hiatal hernia is redemonstrated above the level of the diaphragm. Vasculature: Mild aortic arch atherosclerotic calcification without ectasia. Bones/joints: Stable. IMPRESSION: 1. Hiatal hernia. 2. Increased left basilar pulmonary partial atelectasis/infiltrate. Pneumonitis is difficult to exclude. Clinical correlation is recommended. 3. Mild right lateral basilar subsegmental atelectasis. Electronically signed by: Janak Garcia On 12/08/2019 13:56:42 PM
[2019-12-08 14:09] LABS: ALBUMIN 3.4 GM/DL (3.2-5.2); ALT/SGPT 89 U/L (12-78); BILIRUBIN,DIRECT 0.1 MG/DL (0.0-0.2); BILIRUBIN,TOTAL 0.3 MG/DL (0.2-1.0); BLOOD UREA NITROGEN 37 MG/DL (7-18); CALCIUM LEVEL 8.4 MG/DL (8.8-10.2); CARBON DIOXIDE LEVEL 29 MEQ/L (21-32); CHLORIDE LEVEL 109 MEQ/L (98-107); CK-MB VALUE MASS 4.8 NG/ML (<3.6); CPK CREATINE PHOSPHOKINASE 114 U/L (39-308); CREATININE FOR GFR 0.92 MG/DL (0.70-1.30); GLOMERULAR FILTRATION RATE > 60.0 (>35); GLUCOSE, FASTING 122 MG/DL (70-100); MB/CK RELATIVE INDEX 4.21 (< OR =4); NT-PRO BNP 534 PG/ML (<450); POTASSIUM SERUM 4.3 MEQ/L (3.5-5.1); SODIUM LEVEL 142 MEQ/L (136-145); THYROID STIMULATING HORMONE 0.997 uIU/ML (0.358-3.740); TOTAL PROTEIN 6.1 GM/DL (6.4-8.2); TROPONIN I 0.06 NG/ML (< 0.10)
[2019-12-08] MEDS ORDERED: IPRATROPIUM 0.5MG/ALBUTEROL 2.5MG INH SOL UD 3ML (DUONEB) NEB PRN (15:30)
[2019-12-08] MEDS ORDERED: PRED10TA2 PO (16:22)
[2019-12-08] MEDS ORDERED: ELIQ5TAB PO (16:22)
[2019-12-08] MEDS ORDERED: ACET-683 PO (16:22)
[2019-12-08] MEDS ORDERED: DOXY100T2 PO (16:22)
--- NOTE | 2019-12-08 16:31 | HPEPDOC ---
General Date of Admission 12/08/19 Date of Service: Dec 08, 2019 Chief Complaint The patient is a 89-year-old male admitted with a reason for visit of SOB. Source: Patient History of Present Illness 89 year old male with COPD/Asthma exacerbation due to recent rhinovirus infe ction on 12/03/19 and acute left leg DVT was discharged from the hospital on 12/06/19 comes back today at the urging of daughter and visiting nurse as he was noted to have increased wheezing and SOB. He uses 3 L of oxygen at home for many years. Patient himself denied any new worsening of SOB. He says his breathing is always bad and has been for many years and he has to rest after a few feet to ca tch his breath. He does report that is wheezing was a little worse this morning. Denied any fever or chills, denied any increased swelling of the legs. He complains of right shoulder pain which has been there for many years and his movement there is restricted. He rates the pain as 5/10 dull aching in nature denied any warmth or redness at the right shoulder but does say that it is deformed and always swollen than the other. He was admitted for COPD exacerbation. Home Medications Scheduled Acetaminophen (Acetaminophen) 500 Mg Tablet, 1,000 MG PO BID, (Reported) Apixaban (Eliquis) 5 Mg Tablet, 10 MG PO BID, (Reported) 10MG BID FOR 3 DAYS. DECREASE TO 5MG BID ON 12/10/19 Arformoterol Tartrate (Brovana) 15 Mcg/2 Ml Vial.neb, 1 VIAL NEB BID, (Reported) Doxycycline Hyclate (Doxycycline Hyclate) 100 Mg Tablet, 100 MG PO BID, (Reported) FILLED 12/06/19 FOR 7 DAYS Gabapentin (Gabapentin) 300 Mg Capsule, 300 MG PO DAILY, (Reported) Hydrochlorothiazide (Hydrochlorothiazide) 12.5 Mg Tablet, 12.5 MG PO DAILY, (Reported) Hydroxyzine HCl (Hydroxyzine HCl) 25 Mg Tablet, 25 MG PO BID, (Reported) Levothyroxine Sodium (Levothyroxine Sodium) 50 Mcg Tablet, 50 MCG PO DAILY, (Reported) Losartan Potassium (Losartan Potassium) 25 Mg Tablet, 25 MG PO DAILY, (Reported) Omeprazole (Omeprazole) 20 Mg Capsule.dr, 20 MG PO BID, (Reported) Prednisone (Prednisone) 10 Mg Tablet, 40 MG PO ASDIRECTED, (Reported) STARTED 12/06/19. Take 4 tabs daily x 3 days, then 3 tabs daily x 3 days, then 2 tabs daily x 3 days, then 1 tab daily x 3 days and stop Quetiapine Fumarate (Quetiapine Fumarate) 25 Mg Tablet, 25 MG PO DAILY, (Reported) Quetiapine Fumarate (Quetiapine Fumarate) 25 Mg Tablet, 50 MG PO QHS, (Reported) Ropinirole HCl (Ropinirole HCl) 2 Mg Tablet, 2 MG PO TID, (Reported) Simvastatin (Simvastatin) 20 Mg Tablet, 20 MG PO QHS, (Reported) Scheduled PRN Oxycodone HCl/Acetaminophen (Oxycodone-Acetaminophen 5-325) 1 Each Tablet, 1 TAB PO PRN PRN for PAIN OR DYSPNEA, (Reported) Allergies Coded Allergies: codeine (Verified Allergy, Unknown, 12/03/19) Past Medical History Medical History Acute left leg DVT on 12/03/19 H/o DVT in 2006 Recent Respiratory viral infection with Human rhinovirus 12/03/19 COPD Chronic respiratory failure with hypoxia Asthma Hypertension HLD RLS/ leg cramps Anxiety/ insomnia Chronic Right shoulder pain due to rotator cuff tear, bursitis, OA. Left-sided sciatica. Prostate cancer Depression Osteoarthritis bilateral shoulders, knees. Esophageal hernia. Right kidney lesion. 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 Family History Father during Word War II, had hypertension and cancer. Mother of chronic obstructive pulmonary disease (COPD). Social History * Smoker: former Smoker Alcohol: Denies Drugs: denies A-FIB/CHADSVASC A-FIB History Current/History of A-Fib/PAF?: No Current PO Anticoag Therapy: Yes Review of Systems Constitutional: Denies: Chills, Fever, Night Sweats Eyes: Denies: Pain, Vision change ENT: Denies: Head Aches, Ear Pain, Dysphagia Skin: Denies: Rash, Lesions, Breakdown Pulmonary: Reports: Dyspnea, Cough Cardiovascular: Denies: Chest Pain, Palpitations, Orthopnea, Paroxysmal Noc. Dyspnea, Lt Headedness Gastrointestinal: Denies: Nausea, Vomiting, Abdominal Pain, Diarrhea Genitourinary: Denies: Dysuria, Frequency, Incontinence, Retention Hematologic: Denies: Bruising, Bleeding Excessively Musculoskeletal: Reports: Back Pain, Shoulder Pain, Leg Pain Physical Examination General Exam: Positive: Alert, Cooperative, No Acute Distress Eye Exam: Positive: PERRLA, Conjunctiva & lids normal, EOMI; Negative: Sclera icteric ENT Exam: Positive: Atraumatic, Mucous membr. moist/pink, Pharynx Normal Chest Exam: Positive: Rhonchi, Wheezing Heart Exam: Positive: Rate Normal, Regular Rhythm, Normal S1, Normal S2; Negative: Murmurs, Rubs Abdomen Exam: Positive: Normal bowel sounds, Soft; Negative: Tenderness, Hepatospenomegaly Extremity Exam: Positive: Edema (bilateral trace edema), Normal pulses, Tenderness (right shoulder), Swelling (right shoulder); Negative: Clubbing, Cyanosis Skin Exam: Positive: Nl turgor and temperature; Negative: Breakdown, Lesion Neuro Exam: Positive: Normal Speech, Normal Tone Psych Exam: Positive: Memory Intact, Oriented x 3 Vital Signs Vital Signs Date Time Temp Pulse Resp B/P (MAP) Pulse Ox O2 Delivery O2 Flow Rate FiO2 12/08/19 12:43 Nasal Cannula 2.0 12/08/19 12:39 97.5 70 24 171/76 (107) 98 Laboratory Data Labs 24H Laboratory Tests 2 12/08/19 13:18: Immature Granulocyte % (Auto) 3.6H, Neutrophils (%) (Auto) 82.9H, Lymphocytes (%) (Auto) 9.5L, Monocytes (%) (Auto) 3.3, Eosinophils (%) (Auto) 0.1, Basophils (%) (Auto) 0.6, Neutrophils # (Auto) 7.1, Lymphocytes # (Auto) 0.8L, Monocytes # (Auto) 0.3, Eosinophils # (Auto) 0.0, Basophils # (Auto) 0.1, Nucleated Red Blood Cells % (auto) 0.0, Blood Gas Bicarbonate Standard 23.4, Venous Blood pH 7.350, Venous Blood Partial Pressure CO2 46.4, Venous Blood Partial Pressure O2 50.7H, Venous Blood Total Carbon Dioxide 26.5, Venous Blood HCO3 25.0, Venous Blood Oxygen Saturation 84.2H, Venous Blood Base Excess -0.9, Anion Gap 4L, Glomerular Filtration Rate > 60.0, Lactic Acid Level 1.7, Calcium Level 8.4L, Total Bilirubin 0.3, Direct Bilirubin 0.1, Aspartate Amino Transf (AST/SGOT) 33, Alanine Aminotransferase (ALT/SGPT) 89H, Alkaline Phosphatase 100, Total Crea gildardo Kinase 114, Creatine Kinase MB 4.8H, Creatine Kinase MB Relative Index 4.21H, Troponin I 0.06, [id number]-Type Natriuretic Peptide 534H, Total Protein 6.1L, Albumin 3.4, Albumin/Globulin Ratio 1.3, Thyroid Stimulating Hormone (TSH) 0.997, Thyroxine (T4) 6.0 CBC/BMP Laboratory Tests 12/08/19 13:18 Microbiology Microbiology 12/08/19 Blood Culture, Received Pending 12/08/19 Blood Culture, Received Pending Assessment/Plan 89 year old male with COPD/Asthma exacerbation due to recent rhinovirus infection on 12/03/19 and acute left leg DVT was discharged from the hospital on 12/06/19 comes back today at the urging of daughter and visiting nurse as he was noted to have increased wheezing and SOB. Patient himself denied any new worsening of SOB. He says his breathing is always bad and has been for many years and he has to rest after a few feet to catch his breath. He does report that is wheezing was a little worse this morning. e was admitted for COPD exacerbation COPD exacerbation due to viral resp tract infection recently Prednisone, formoterol, duonebs, budesonide and albuterol Doxycycline Acute DVT on Eliquis Chronic respiratory failure with hypoxia at baseline oxygen. Right shoulder pain and swelling Chronic rotator cuff tear with bursitis, OA MRI noted has OA, bursitis and tear of supraspinatus tendon all looks chronic patient reports that at one time surgery was offered but was told high risk so he did not want to pursue it. discussed with ortho Dr Morales. Will refer to ortho clinic. pain controlled with tylenol, meloxicam, gabapentin, Narcotics. Hypertension continue losartan and HCTZ. Hyperlipidemia statin Restless legs ropinirole depression seroquel Plan / VTE VTE Prophylaxis Ordered?: Yes JACQUELINE DILLON MD Dec 08, 2019 16:30
[2019-12-08 16:50] VITALS: BP 148/93
--- NOTE | 2019-12-08 18:16 | ECGEPIP ---
[facility] - ED Test Date: 2019-12-08 Pat Name: LOREN CHERRY Department: Room: - Gender: Male Disease Education Specialist: nr : [id number] Requested By: Juanis Burton Order Number: [id number] Reading MD: Jae Lino Measurements Intervals Walsh Rate: 65 P: 37 ND: 111 QRS: -29 QRSD: 100 T: 22 QT: 397 QTc: 415 Interpretive Statements SINUS RHYTHM WITH MARKED SINUS ARRHYTHMIA WITH SHORT ND INTERVAL BORDERLINE LEFT AXIS DEVIATION Rate increased from tracing done 12-03-19 Electronically Signed on 12-08-2019 18:15:57 EDT by Jae Lino
[2019-12-08 20:00] VITALS: BP 154/91
[2019-12-08] MEDS: FORMOTEROL FUMARATE 20 MCG/2 ML INHALATION SOLUTION (PERFOROMIST) INH SCH (20:00)
[2019-12-08] MEDS ORDERED: PERCOCET 5MG/325MG TAB PO PRN (20:15)
[2019-12-08] MEDS: BUDESONIDE 0.5 MG/2 ML INHALATION SUSPENSION INH SCH (20:21)
[2019-12-08] MEDS: ALBUTEROL SULFATE 2.5 MG/0.5 ML INH NEB SOLN NEB SCH (20:21)
[2019-12-08] MEDS: ACETAMINOPHEN 500 MG TAB PO SCH (21:03)
[2019-12-08] MEDS: hydrOXYzine 25 MG TAB PO SCH (21:03)
[2019-12-08] MEDS: APIXABAN 5 MG TAB (ELIQUIS) PO SCH (21:04)
[2019-12-08] MEDS: DOCUSATE SODIUM 100 MG CAP PO SCH (21:04)
[2019-12-08] MEDS: OMEPRAZOLE 20 MG CAP PO SCH (21:04)
[2019-12-08] MEDS: rOPINIRole 1MG TAB PO SCH (21:04)
[2019-12-08] MEDS: QUEtiapine FUMARATE 25 MG TAB PO SCH (21:04)
[2019-12-08] MEDS: SIMVASTATIN 20 MG TAB PO SCH (21:04)
[2019-12-09] MEDS: ALBUTEROL SULFATE 2.5 MG/0.5 ML INH NEB SOLN NEB SCH ×7 (00:06→23:46)
[2019-12-09 05:52] VITALS: BP 175/90
[2019-12-09] MEDS: LEVOTHYROXINE 50MCG TABLET (0.05MG) PO SCH (06:23)
[2019-12-09] MEDS: BUDESONIDE 0.5 MG/2 ML INHALATION SUSPENSION INH SCH ×2 (08:00→19:47)
[2019-12-09] MEDS ORDERED: predniSONE 20 MG TAB PO SCH (09:00)
[2019-12-09] MEDS: DOCUSATE SODIUM 100 MG CAP PO SCH ×2 (09:02→21:53)
[2019-12-09] MEDS: GABAPENTIN 300 MG CAP PO SCH (09:02)
[2019-12-09] MEDS: LOSARTAN 25 MG TAB PO SCH (09:02)
[2019-12-09] MEDS: hydroCHLOROthiazide 12.5 MG CAPSULE PO SCH (09:03)
[2019-12-09] MEDS: APIXABAN 5 MG TAB (ELIQUIS) PO SCH ×2 (09:03→21:52)
[2019-12-09] MEDS: hydrOXYzine 25 MG TAB PO SCH ×2 (09:03→21:53)
[2019-12-09] MEDS: OMEPRAZOLE 20 MG CAP PO SCH ×2 (09:04→21:53)
[2019-12-09] MEDS: rOPINIRole 1MG TAB PO SCH ×3 (09:04→21:52)
[2019-12-09] MEDS: QUEtiapine FUMARATE 25 MG TAB PO SCH ×2 (09:04→21:52)
[2019-12-09] MEDS: ACETAMINOPHEN 500 MG TAB PO SCH ×2 (09:05→21:52)
--- NOTE | 2019-12-09 10:45 | IPNPDOC ---
Subjective Date Seen The patient was seen on 12/09/19. Subjective Chief Complaint/HPI Continues to complain of shortness of breath and wheezing and rattling. Patient reports than he cant catch his breath. Says getting SOB when he is talking. Objective Physical Examination General Exam: Positive: Alert, Cooperative, No Acute Distress, Other (conversational dyspnea. ) Eye Exam: Positive: PERRLA, Conjunctiva & lids normal, EOMI; Negative: Sclera icteric ENT Exam: Positive: Atraumatic, Mucous membr. moist/pink, Pharynx Normal Chest Exam: Positive: Rhonchi, Wheezing Heart Exam: Positive: Rate Normal, Regular Rhythm, Normal S1, Normal S2; Negative: Murmurs, Rubs Abdomen Exam: Positive: Normal bowel sounds, Soft; Negative: Tenderness, Hepatospenomegaly Extremity Exam: Positive: Edema (bilateral trace edema), Normal pulses, Tenderness (right shoulder), Swelling (right shoulder); Negative: Clubbing, Cyanosis Skin Exam: Positive: Nl turgor and temperature; Negative: Breakdown, Lesion Neuro Exam: Positive: Normal Speech, Normal Tone Psych Exam: Positive: Memory Intact, Oriented x 3 Assessment /Plan Assessment 89 year old male with COPD/Asthma exacerbation due to recent rhinovirus infection on 12/03/19 and acute left leg DVT was discharged from the hospital on 12/06/19 comes back today at the urging of daughter and visiting nurse as he was noted to have increased wheezing and SOB. Patient himself denied any new worsening of SOB. He says his breathing is always bad and has been for many years and he has to rest after a few feet to catch his breath. He does report that is wheezing was a little worse this morning. e was admitted for COPD exacerbation COPD exacerbation due to viral resp tract infection recently methyl Prednisone, formoterol, duonebs, budesonide and albuterol Azithromycin Generalized weakness and deconditioning due to acute illness, increased work o breathing PT/OT/ARU screen Acute DVT on Eliquis Chronic respiratory failure with hypoxia at baseline oxygen. will reduce oxygen to 2 liters. Right shoulder pain and swelling Chronic rotator cuff tear with bursitis, OA MRI noted has OA, bursitis and tear of supraspinatus tendon all looks chronic patient reports that at one time surgery was offered but was told high risk so he did not want to pursue it. discussed with ortho Dr Morales. Will refer to ortho clinic. pain controlled with tylenol, meloxicam, gabapentin, Narcotics. Hypertension continue losartan and HCTZ. Hyperlipidemia statin Restless legs ropinirole Depression Seroquel Hiatal hernia with bilateral lower lobe compressive atelectasis. Plan/VTE VTE Prophylaxis Ordered?: Yes VS, I&O, 24H, Fishbone Vital Signs/I&O Vital Signs Date Time Temp Pulse Resp B/P (MAP) Pulse Ox O2 Delivery O2 Flow Rate FiO2 12/09/19 09:02 175/90 12/09/19 05:52 98.2 69 18 97 Room Air 12/08/19 20:00 2.0 I&O- Last 24 Hours up to 6 AM 12/09/19 06:00 Intake Total 970 ml Output Total 500 ml Balance 470 ml Laboratory Data 24H LABS Laboratory Tests 2 12/08/19 13:18: Immature Granulocyte % (Auto) 3.6H, Neutrophils (%) (Auto) 82.9H, Lymphocytes (%) (Auto) 9.5L, Monocytes (%) (Auto) 3.3, Eosinophils (%) (Auto) 0.1, Basophils (%) (Auto) 0.6, Neutrophils # (Auto) 7.1, Lymphocytes # (Auto) 0.8L, Monocytes # (Auto) 0.3, Eosinophils # (Auto) 0.0, Basophils # (Auto) 0.1, Nucleated Red Blo od Cells % (auto) 0.0, Blood Gas Bicarbonate Standard 23.4, Venous Blood pH 7.350, Venous Blood Partial Pressure CO2 46.4, Venous Blood Partial Pressure O2 50.7H, Venous Blood Total Carbon Dioxide 26.5, Venous Blood HCO3 25.0, Venous Blood Oxygen Saturation 84.2H, Venous Blood Base Excess -0.9, Anion Gap 4L, Glomerular Filtration Rate > 60.0, Lactic Acid Level 1.7, Calcium Level 8.4L, Total Bilirubin 0.3, Direct Bilirubin 0.1, Aspartate Amino Transf (AST/SGOT) 33, Alanine Aminotransferase (ALT/SGPT) 89H, Alkaline Phosphatase 100, Total Creatine Kinase 114, Creatine Kinase MB 4.8H, Creatine Kinase MB Relative Index 4.21H, Troponin I 0.06, IR-Fvf-[id number]-Type Natriuretic Peptide 534H, Total Protein 6.1L, Albumin 3.4, Albumin/Globulin Ratio 1.3, Thyroid Stimulating Hormone (TSH) 0.997, Thyroxine (T4) 6.0 CBC/BMP Laboratory Tests 12/08/19 13:18 Microbiology Microbiology 12/08/19 Blood Culture, Received Pending 12/08/19 Blood Culture, Received Pending JACQUELINE DILLON MD Dec 09, 2019 10:45
[2019-12-09] MEDS: FORMOTEROL FUMARATE 20 MCG/2 ML INHALATION SOLUTION (PERFOROMIST) INH SCH ×2 (11:46→19:47)
[2019-12-09] MEDS ORDERED: AZITHROMYCIN 250MG TABLET PO ONE (12:00)
[2019-12-09 14:00] VITALS: BP 126/70
[2019-12-09] MEDS: methylPREDNISolone 40MG 1ML VIAL IV SCH ×2 (14:36→21:52)
[2019-12-09 20:00] VITALS: BP 124/69
[2019-12-09] MEDS: SIMVASTATIN 20 MG TAB PO SCH (21:53)
[2019-12-10 05:56] VITALS: BP 120/72
[2019-12-10] MEDS: ALBUTEROL SULFATE 2.5 MG/0.5 ML INH NEB SOLN NEB SCH ×5 (06:33→19:27)
[2019-12-10] MEDS: methylPREDNISolone 40MG 1ML VIAL IV SCH ×2 (06:33→17:56)
[2019-12-10] MEDS: LEVOTHYROXINE 50MCG TABLET (0.05MG) PO SCH (06:33)
[2019-12-10] MEDS: FORMOTEROL FUMARATE 20 MCG/2 ML INHALATION SOLUTION (PERFOROMIST) INH SCH ×2 (07:50→19:27)
[2019-12-10] MEDS: BUDESONIDE 0.5 MG/2 ML INHALATION SUSPENSION INH SCH ×2 (07:51→19:27)
[2019-12-10] MEDS: LOSARTAN 25 MG TAB PO SCH (08:35)
[2019-12-10] MEDS: ACETAMINOPHEN 500 MG TAB PO SCH ×2 (08:36→21:04)
[2019-12-10] MEDS: GABAPENTIN 300 MG CAP PO SCH (08:37)
[2019-12-10] MEDS: hydrOXYzine 25 MG TAB PO SCH ×2 (08:37→21:04)
[2019-12-10] MEDS: rOPINIRole 1MG TAB PO SCH ×3 (08:37→21:04)
[2019-12-10] MEDS: hydroCHLOROthiazide 12.5 MG CAPSULE PO SCH (08:38)
[2019-12-10] MEDS: APIXABAN 5 MG TAB (ELIQUIS) PO SCH ×2 (08:38→21:04)
[2019-12-10] MEDS: OMEPRAZOLE 20 MG CAP PO SCH ×2 (08:38→21:03)
[2019-12-10] MEDS: QUEtiapine FUMARATE 25 MG TAB PO SCH ×2 (08:39→21:04)
[2019-12-10] MEDS: AZITHROMYCIN 250MG TABLET PO SCH (08:39)
[2019-12-10] MEDS: DOCUSATE SODIUM 100 MG CAP PO SCH ×2 (08:40→21:03)
--- NOTE | 2019-12-10 10:51 | IPNPDOC ---
Subjective Date Seen The patient was seen on 12/10/19. Subjective Chief Complaint/HPI No new events overnight. Continues to have wheezing at rest and SOB but says its better. He is walking to the bathroom Objective Physical Examination General Exam: Positive: Alert, Cooperative, No Acute Distress, Other (conversational dyspnea. ) Eye Exam: Positive: PERRLA, Conjunctiva & lids normal, EOMI; Negative: Sclera icteric ENT Exam: Positive: Atraumatic, Mucous membr. moist/pink, Pharynx Normal Chest Exam: Positive: Rhonchi, Wheezing Heart Exam: Positive: Rate Normal, Regular Rhythm, Normal S1, Normal S2; Negative: Murmurs, Rubs Abdomen Exam: Positive: Normal bowel sounds, Soft; Negative: Tenderness, Hepatospenomegaly Extremity Exam: Positive: Edema (bilateral trace edema), Normal pulses, Tenderness (right shoulder), Swelling (right shoulder); Negative: Clubbing, Cyanosis Skin Exam: Positive: Nl turgor and temperature; Negative: Breakdown, Lesion Neuro Exam: Positive: Normal Speech, Normal Tone Psych Exam: Positive: Memory Intact, Oriented x 3 Assessment /Plan Assessment 89 year old male with COPD/Asthma exacerbation due to recent rhinovirus infection on 12/03/19 and acute left leg DVT was discharged from the hospital on 12/06/19 comes back today at the urging of daughter and visiting nurse as he was noted to have increased wheezing and SOB. Patient himself denied any new worsening of SOB. He says his breathing is always bad and has been for many years and he has to rest after a few feet to catch his breath. He does report that is wheezing was a little worse this morning. e was admitted for COPD exacerbation COPD exacerbation due to viral resp tract infection recently methyl Prednisone, formoterol, duonebs, budesonide and albuterol Azithromycin Generalized weakness and deconditioning due to acute illness, increased work o breathing PT/OT/ARU screen Acute DVT on Eliquis Chronic respiratory failure with hypoxia will reduce oxygen to 2 liters. Right shoulder pain and swelling Chronic rotator cuff tear with bursitis, OA MRI noted has OA, bursitis and tear of supraspinatus tendon all looks chronic patient reports that at one time surgery was offered but was told high risk so he did not want to pursue it. discussed with ortho Dr Morales. Will refer to ortho clinic. pain controlled with tylenol, meloxicam, gabapentin, Narcotics. Hypertension continue losartan and HCTZ. Hyperlipidemia statin Restless legs ropinirole Depression Seroquel Hiatal hernia with bilateral lower lobe compressive atelectasis. Plan/VTE VTE Prophylaxis Ordered?: Yes VS, I&O, 24H, Fishbone Vital Signs/I&O Vital Signs Date Time Temp Pulse Resp B/P (MAP) Pulse Ox O2 Delivery O2 Flow Rate FiO2 12/10/19 07:51 2.0 12/10/19 05:56 98.4 54 20 120/72 (88) 100 Nasal Cannula I&O- Last 24 Hours up to 6 AM 12/10/19 07:00 Intake Total 880 ml Output Total 0 ml Balance 880 ml Laboratory Data Microbiology Microbiology 12/08/19 Blood Culture - Preliminary, Resulted No growth after 24 hours . All specim... 12/08/19 Blood Culture - Preliminary, Resulted No growth after 24 hours . All specim... JACQUELINE DILLON MD Dec 10, 2019 08:00
[2019-12-10 14:00] VITALS: BP 156/81
[2019-12-10] MEDS: SIMVASTATIN 20 MG TAB PO SCH (21:03)
[2019-12-10 22:00] VITALS: BP 154/82
[2019-12-11] MEDS: ALBUTEROL SULFATE 2.5 MG/0.5 ML INH NEB SOLN NEB SCH ×6 (00:56→19:14)
[2019-12-11 06:00] VITALS: BP 174/85
[2019-12-11] MEDS: methylPREDNISolone 40MG 1ML VIAL IV SCH ×2 (06:42→18:00)
[2019-12-11] MEDS: LEVOTHYROXINE 50MCG TABLET (0.05MG) PO SCH (06:42)
[2019-12-11 06:55] LABS: HEMATOCRIT 39.3 % (42.0-52.0); HEMOGLOBIN 12.5 g/dl (13.5-17.5); MEAN CORPUSCULAR HEMOGLOBIN 28.7 pg (27.0-33.0); MEAN CORPUSCULAR HGB CONC 31.8 g/dl (32.0-36.5); MEAN CORPUSCULAR VOLUME 90.3 fl (80.0-96.0); PLATELET COUNT, AUTOMATED 247 10^3/uL (150-450); RED BLOOD COUNT 4.35 10^6/uL (4.30-6.10); WHITE BLOOD COUNT 13.4 10^3/uL (4.0-10.0)
[2019-12-11 07:10] LABS: BLOOD UREA NITROGEN 37 MG/DL (7-18); CALCIUM LEVEL 8.6 MG/DL (8.8-10.2); CARBON DIOXIDE LEVEL 34 MEQ/L (21-32); CHLORIDE LEVEL 103 MEQ/L (98-107); CREATININE FOR GFR 1.03 MG/DL (0.70-1.30); GLOMERULAR FILTRATION RATE > 60.0 (>35); GLUCOSE, FASTING 92 MG/DL (70-100); POTASSIUM SERUM 4.1 MEQ/L (3.5-5.1); SODIUM LEVEL 139 MEQ/L (136-145)
[2019-12-11 07:17] LABS: ATYPICAL LYMPH 4 % (0-5); LYMPHOCYTES 9 % (16-44); MONOCYTES 3 % (0-5); NEUTROPHILS 84 % (28-66); PLATELET ESTIMATE NORMAL (NORMAL)
[2019-12-11] MEDS: FORMOTEROL FUMARATE 20 MCG/2 ML INHALATION SOLUTION (PERFOROMIST) INH SCH ×2 (07:45→19:14)
[2019-12-11] MEDS: BUDESONIDE 0.5 MG/2 ML INHALATION SUSPENSION INH SCH ×2 (07:45→19:14)
[2019-12-11] MEDS: hydroCHLOROthiazide 12.5 MG CAPSULE PO SCH (08:42)
[2019-12-11] MEDS: GABAPENTIN 300 MG CAP PO SCH (08:42)
[2019-12-11] MEDS: hydrOXYzine 25 MG TAB PO SCH ×2 (08:43→20:24)
[2019-12-11] MEDS: OMEPRAZOLE 20 MG CAP PO SCH ×2 (08:43→20:24)
[2019-12-11] MEDS: ACETAMINOPHEN 500 MG TAB PO SCH ×2 (08:43→20:24)
[2019-12-11] MEDS: DOCUSATE SODIUM 100 MG CAP PO SCH ×2 (08:43→20:24)
[2019-12-11] MEDS: APIXABAN 5 MG TAB (ELIQUIS) PO SCH ×2 (08:43→20:24)
[2019-12-11] MEDS: QUEtiapine FUMARATE 25 MG TAB PO SCH ×2 (08:44→20:24)
[2019-12-11] MEDS: rOPINIRole 1MG TAB PO SCH ×3 (08:44→20:24)
[2019-12-11] MEDS: AZITHROMYCIN 250MG TABLET PO SCH (08:44)
[2019-12-11] MEDS: LOSARTAN 25 MG TAB PO SCH (08:44)
--- NOTE | 2019-12-11 12:23 | IPNPDOC ---
Subjective Date Seen The patient was seen on 12/11/19. Subjective Chief Complaint/HPI SOB is better, wheezing still present with some conversational dyspnea. Has been walking with nursing assist. Objective Physical Examination General Exam: Positive: Alert, Cooperative, No Acute Distress, Other (conversational dyspnea. ) Eye Exam: Positive: PERRLA, Conjunctiva & lids normal, EOMI; Negative: Sclera icteric ENT Exam: Positive: Atraumatic, Mucous membr. moist/pink, Pharynx Normal Chest Exam: Positive: Rhonchi, Wheezing Heart Exam: Positive: Rate Normal, Regular Rhythm, Normal S1, Normal S2; Negative: Murmurs, Rubs Abdomen Exam: Positive: Normal bowel sounds, Soft; Negative: Tenderness, Hepatospenomegaly Extremity Exam: Positive: Edema (bilateral trace edema), Normal pulses, Tenderness (right shoulder), Swelling (right shoulder); Negative: Clubbing, Cyanosis Skin Exam: Positive: Nl turgor and temperature; Negative: Breakdown, Lesion Neuro Exam: Positive: Normal Speech, Normal Tone Psych Exam: Positive: Memory Intact, Oriented x 3 Assessment /Plan Assessment 89 year old male with COPD/Asthma exacerbation due to recent rhinovirus infection on 12/03/19 and acute left leg DVT was discharged from the hospital on 12/06/19 comes back today at the urging of daughter and visiting nurse as he was noted to have increased wheezing and SOB. Patient himself denied any new worsening of SOB. He says his breathing is always bad and has been for many years and he has to rest after a few feet to catch his breath. He does report that is wheezing was a little worse this morning. e was admitted for COPD exacerbation COPD exacerbation due to viral resp tract infection recently methyl Prednisone, formoterol, duonebs, budesonide and albuterol Azithromycin Generalized weakness and deconditioning due to acute illness, increased work o b reathing PT/OT/ARU screen Acute DVT on Eliquis Chronic respiratory failure with hypoxia will reduce oxygen to 2 liters. Right shoulder pain and swelling Chronic rotator cuff tear with bursitis, OA MRI noted has OA, bursitis and tear of supraspinatus tendon all looks chronic patient reports that at one time surgery was offered but was told high risk so he did not want to pursue it. discussed with ortho Dr Morales. Will refer to ortho clinic. pain controlled with tylenol, meloxicam, gabapentin, Narcotics. Hypertension continue losartan and HCTZ. Hyperlipidemia statin Restless legs ropinirole Depression Seroquel Hiatal hernia with bilateral lower lobe compressive atelectasis. Plan/VTE VTE Prophylaxis Ordered?: Yes VS, I&O, 24H, Fishbone Vital Signs/I&O Vital Signs Date Time Temp Pulse Resp B/P (MAP) Pulse Ox O2 Delivery O2 Flow Rate FiO2 12/11/19 09:00 2.0 12/11/19 08:44 155/77 12/11/19 06:00 97.4 64 18 98 Nasal Cannula I&O- Last 24 Hours up to 6 AM 12/11/19 06:00 Intake Total 980 ml Balance 980 ml Laboratory Data 24H LABS Laboratory Tests 2 12/11/19 06:33: Immature Granulocyte % (Auto) , Neutrophils (%) (Auto) , Nucleated Red Blood Cells % (auto) 0.0, Neutrophils 84H, Lymphocytes (Manual) 9L, Monocytes (Manual) 3, Atypical Lymphocytes 4, Red Blood Cell Morphology NORMAL, Platelet Estimate NORMAL, Anion Gap 2L, Glomerular Filtration Rate > 60.0, Calcium Level 8.6L CBC/BMP Laboratory Tests 12/11/19 06:33 Microbiology Microbiology 12/08/19 Blood Culture - Preliminary, Resulted No Growth after 48 hours. All Specime... 12/08/19 Blood Culture - Preliminary, Resulted No Growth after 48 hours. All Specime... JACQUELINE DILLON MD Dec 11, 2019 12:23
[2019-12-11 14:00] VITALS: BP 150/76
[2019-12-11] MEDS: SIMVASTATIN 20 MG TAB PO SCH (20:24)
[2019-12-11 22:00] VITALS: BP 149/75
[2019-12-12 05:37] LABS: HEMATOCRIT 41.8 % (42.0-52.0); MEAN CORPUSCULAR HEMOGLOBIN 28.1 pg (27.0-33.0); MEAN CORPUSCULAR HGB CONC 31.1 g/dl (32.0-36.5); MEAN CORPUSCULAR VOLUME 90.5 fl (80.0-96.0); PLATELET COUNT, AUTOMATED 243 10^3/uL (150-450); RED BLOOD COUNT 4.62 10^6/uL (4.30-6.10); WHITE BLOOD COUNT 13.9 10^3/uL (4.0-10.0)
[2019-12-12 06:00] VITALS: BP 160/79
[2019-12-12 06:02] LABS: BLOOD UREA NITROGEN 44 MG/DL (7-18); CALCIUM LEVEL 8.6 MG/DL (8.8-10.2); CARBON DIOXIDE LEVEL 34 MEQ/L (21-32); CHLORIDE LEVEL 102 MEQ/L (98-107); GLOMERULAR FILTRATION RATE > 60.0 (>35); GLUCOSE, FASTING 88 MG/DL (70-100); POTASSIUM SERUM 4.6 MEQ/L (3.5-5.1); SODIUM LEVEL 139 MEQ/L (136-145)
[2019-12-12] MEDS: methylPREDNISolone 40MG 1ML VIAL IV SCH ×3 (06:25→17:17)
[2019-12-12] MEDS: LEVOTHYROXINE 50MCG TABLET (0.05MG) PO SCH (06:25)
[2019-12-12 07:18] LABS: ATYPICAL LYMPH 1 % (0-5); LYMPHOCYTES 20 % (16-44); METAMYELOCYTES 2 % (0-0); MONOCYTES 5 % (0-5); MYELOCYTES 2 % (0-0); NEUTROPHILS 70 % (28-66); PLATELET ESTIMATE NORMAL (NORMAL)
[2019-12-12 07:20] LABS: ANISOCYTOSIS 1+
[2019-12-12] MEDS: BUDESONIDE 0.5 MG/2 ML INHALATION SUSPENSION INH SCH ×2 (07:40→19:54)
[2019-12-12] MEDS: ALBUTEROL SULFATE 2.5 MG/0.5 ML INH NEB SOLN NEB SCH ×4 (07:40→19:54)
[2019-12-12] MEDS: FORMOTEROL FUMARATE 20 MCG/2 ML INHALATION SOLUTION (PERFOROMIST) INH SCH ×2 (07:40→19:54)
[2019-12-12] MEDS: DOCUSATE SODIUM 100 MG CAP PO SCH ×2 (08:00→21:04)
[2019-12-12] MEDS: OMEPRAZOLE 20 MG CAP PO SCH ×2 (08:00→21:03)
[2019-12-12] MEDS: hydrOXYzine 25 MG TAB PO SCH ×2 (08:00→21:04)
[2019-12-12] MEDS: QUEtiapine FUMARATE 25 MG TAB PO SCH ×2 (08:00→21:03)
[2019-12-12] MEDS: LOSARTAN 25 MG TAB PO SCH (08:00)
[2019-12-12] MEDS: hydroCHLOROthiazide 12.5 MG CAPSULE PO SCH (08:00)
[2019-12-12] MEDS: APIXABAN 5 MG TAB (ELIQUIS) PO SCH ×2 (08:00→21:04)
[2019-12-12] MEDS: GABAPENTIN 300 MG CAP PO SCH (08:01)
[2019-12-12] MEDS: AZITHROMYCIN 250MG TABLET PO SCH (08:01)
[2019-12-12] MEDS: rOPINIRole 1MG TAB PO SCH ×3 (08:01→21:03)
[2019-12-12] MEDS: ACETAMINOPHEN 500 MG TAB PO SCH ×2 (08:02→21:03)
--- NOTE | 2019-12-12 11:43 | REPVR ---
PROCEDURE INFORMATION: Exam: CT Chest Without Contrast Exam date and time: 12/12/2019 10:51 AM Age: 89 years old Clinical indication: Shortness of breath and wheezing; Additional info: Persistent dyspnea/wheezing TECHNIQUE: Imaging protocol: Computed tomography of the chest without contrast. Coronal and sagittal reformats were created and reviewed. 3D rendering (Not supervised by radiologist): MIP and/or 3D reconstructed images were created by the technologist. Radiation optimization: All CT scans at this facility use at least one of these dose optimization techniques: automated exposure control; mA and/or kV adjustment per patient size (includes targeted exams where dose is matched to clinical indication); or iterative reconstruction. COMPARISON: CT ANGIO CHEST 12/03/2019 10:15 AM FINDINGS: Lungs: Diffuse bilateral bronchial wall thickening. Multifocal small bronchial mucous plugging. Minimal right upper lobe apical clustered micronodularity consistent with bronchiolitis is redemonstrated. Mild bilateral upper lung predominant emphysema redemonstrated. Bilateral scattered pulmonary bullae. Large compressive atelectasis of the left lower lobe secondary to the hiatal hernia. Left lower lobe superior segment spiculated solid noncalcified nodule measuring 10 mm in average diameter (sagittal series 205, image 86). This was obscured in an area of motion on the prior examination. It is unclear if it represents a true pulmonary nodule or an area of subsegmental scarring/atelectasis. Left upper lobe calcified pulmonary nodule consistent with a benign remote granuloma is redemonstrated. Pleural space: New minimal dependently layering low-attenuation left pleural effusion. No right pleural effusion. No pneumothorax. Heart: Coronary arterial atherosclerotic calcifications are present. No pericardial effusion. Heart size is within normal limits. Mediastinal space: Very large esophageal hiatal hernia containing an intrathoracic stomach is redemonstrated. The hiatal hernia again contains a portion of the transverse colon. Pulmonary arteries: The main pulmonary arterial trunk is not enlarged. Aorta: Tortuous thoracic aorta. Moderate aortic atherosclerosis. Unchanged fusiform dilatation of the proximal descending thoracic aorta measuring 3.6 cm in diameter. Lymph nodes: No enlarged lymph nodes. Gallbladder and bile ducts: Cholecystectomy clips. Pancreas: Atrophic pancreas. Adrenals: Right adrenal 1.5 cm fat attenuation nodule with very small peripheral calcifications is redemonstrated and may represent an adrenal myelolipoma or the findings may represent sequelae of remote adrenal infection or trauma. Kidneys and ureters: Indeterminate right kidney upper pole 1 cm round exophytic intermediate attenuation (39 Hounsfield units) lesion has unchanged size (series 202, image 113). Other hypoattenuating bilateral renal lesions consistent with simple-appearing cysts are redemonstrated. Bones/joints: Bilateral glenohumeral osteoarthritis. Right glenohumeral joint effusion. Multilevel degenerative spine disease. The right acromioclavicular joint is incompletely imaged. Erosions of the right distal clavicular head are redemonstrated. Right acromioclavicular joint effusion is incompletely imaged. 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 Soft tissues: Unchanged right subscapularis muscle atrophy. 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 IMPRESSION: 1. Pulmonary emphysema. Findings consistent with bronchitis and minimal bronchiolitis. 2. Left lower lobe superior segment 10 mm solid nodule versus an area of scarring/atelectasis. Further evaluation/follow-up is recommended. Consider CT Chest at 3 months, PET/CT, or biopsy. (Reference: Sheri) 3. Redemonstration of very large esophageal hiatal hernia containing an intrathoracic stomach an intrathoracic transverse colon. The hiatal hernia creates large compressive atelectasis of the left lower lobe. 4. New minimal left pleural effusion. 5. Please see the body of the report for other findings as described that are stable compared to 12/03/2019. Further evaluation of the right renal 1 cm indeterminate lesion is again recommended. REFERENCES: Sheri H, et al. Guidelines for Management of Incidental Pulmonary Nodules Detected on CT Images: From the Fleischner Society 2017. Radiology. 2017;284(1):228-243. Electronically signed by: Jovany Hardin On 12/12/2019 11:42:41 AM
[2019-12-12] MEDS: NYSTATIN 500,000 U/5 ML SUSP UDC SS SCH ×2 (12:37→17:17)
--- NOTE | 2019-12-12 12:58 | IPNPDOC ---
Text Note Date of Service The patient was seen on 12/12/19. NOTE Subjective: Pt has increased wheezing/sob this am with ambulation. Denies CP/ palpitations. Objective: Vitals: (see below) General: No acute distress, laying comfortably in bed. HEENT: Moist mucous membranes. Neck: No JVD or lymphadenopathy Cardiac: RRR, No murmurs Pulm: Exp wheezing b/l. No rhonchi, stridor, or use of accessory muscles. Abd: NT/ND + BS Ext: No edema or cyanosis Labs (see below) Images: CT Chest FINDINGS: Lungs: Diffuse bilateral bronchial wall thickening. Multifocal small bronchial mucous plugging. Minimal right upper lobe apical clustered micronodularity consistent with bronchiolitis is redemonstrated. Mild bilateral upper lung predominant emphysema redemonstrated. Bilateral scattered pulmonary bullae. Large compressive atelectasis of the left lower lobe secondary to the hiatal hernia. Left lower lobe superior segment spiculated solid noncalcified nodule measuring 10 mm in average diameter (sagittal series 205, image 86). This was obscured in an area of motion on the prior examination. It is unclear if it represents a true pulmonary nodule or an area of subsegmental scarring/atelectasis. Left upper lobe calcified pulmonary nodule consistent with a benign remote granuloma is redemonstrated. Pleural space: New minimal dependently layering low-attenuation left pleural effusion. No right pleural effusion. No pneumothorax. Heart: Coronary arterial atherosclerotic calcifications are present. No pericardial effusion. Heart size is within normal limits. Mediastinal space: Very large esophageal hiatal hernia containing an intrathoracic stomach is redemonstrated. The hiatal hernia again contains a portion of the transverse colon. Pulmonary arteries: The main pulmonary arterial trunk is not enlarged. Aorta: Tortuous thoracic aorta. Moderate aortic atherosclerosis. Unchanged fusiform dilatation of the proximal descending thoracic aorta measuring 3.6 cm in diameter. Lymph nodes: No enlarged lymph nodes. Gallbladder and bile ducts: Cholecystectomy clips. Pancreas: Atrophic pancreas. Adrenals: Right adrenal 1.5 cm fat attenuation nodule with very small peripheral calcifications is redemonstrated and may represent an adrenal myelolipoma or the findings may represent sequelae of remote adrenal infection or trauma. Kidneys and ureters: Indeterminate right kidney upper pole 1 cm round exophytic intermediate attenuation (39 Hounsfield units) lesion has unchanged size (series 202, image 113). Other hypoattenuating bilateral renal lesions consistent with simple-appearing cysts are redemonstrated. Bones/joints: Bilateral glenohumeral osteoarthritis. Right glenohumeral joint effusion. Multilevel degenerative spine disease. The right acromioclavicular joint is incompletely imaged. Erosions of the right distal clavicular head are redemonstrated. Right acromioclavicular joint effusion is incompletely imaged. 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 Soft tissues: Unchanged right subscapularis muscle atrophy. 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 IMPRESSION: 1. Pulmonary emphysema. Findings consistent with bronchitis and minimal bronchiolitis. 2. Left lower lobe superior segment 10 mm solid nodule versus an area of scarring/atelectasis. Further evaluation/follow-up is recommended. Consider CT Chest at 3 months, PET/CT, or biopsy. (Reference: Sheri) 3. Redemonstration of very large esophageal hiatal hernia containing an intrathoracic stomach an intrathoracic transverse colon. The hiatal hernia creates large compressive atelectasis of the left lower lobe. 4. New minimal left pleural effusion. 5. Please see the body of the report for other findings as described that are stable compared to 12/03/2019. Further evaluation of the right renal 1 cm indeterminate lesion is again recommended. A/P Acute COPD exacerbation due to viral resp tract infection recently methyl Prednisone, formoterol, duonebs, budesonide and albuterol Azithromycin - Increase solumedrol to 40mg IV 6hr Generalized weakness and deconditioning due to acute illness, increased work o breathing PT/OT/ARU screen Acute DVT on Eliquis Chronic respiratory failure with hypoxia will reduce oxygen to 2 liters. Right shoulder pain and swelling Chronic rotator cuff tear with bursitis, OA MRI noted has OA, bursitis and tear of supraspinatus tendon all looks chronic patient reports that at one time surgery was offered but was told high risk so he did not want to pursue it. discussed with ortho Dr Morales. Will refer to ortho clinic. pain controlled with tylenol, meloxicam, gabapentin, Narcotics. Hypertension continue losartan and HCTZ. Hyperlipidemia statin Restless legs ropinirole Depression Seroquel Hiatal hernia with bilateral lower lobe compressive atelectasis. Abn CT Chest (see above) - will need close f/u with PCP for repeat imaging and close monitoring. DVT Prophy: Eliquis Palliative care consult. VS,Rolandobone, I+O VS, Fishbone, I+O Laboratory Tests 12/12/19 05:27 Vital Signs Date Time Temp Pulse Resp B/P (MAP) Pulse Ox O2 Delivery O2 Flow Rate FiO2 12/12/19 09:00 2.0 12/12/19 08:00 160/79 12/12/19 06:00 97.7 81 19 97 Nasal Cannula I&O- Last 24 Hours up to 6 AM 12/12/19 06:00 Intake Total 1010 ml Output Total 0 ml Balance 1010 ml ROBIN PARDO MD Dec 12, 2019 12:58
[2019-12-12 14:00] VITALS: BP 148/79
[2019-12-12] MEDS: SIMVASTATIN 20 MG TAB PO SCH (21:04)
[2019-12-12 22:00] VITALS: BP 161/88
[2019-12-13] MEDS: ALBUTEROL SULFATE 2.5 MG/0.5 ML INH NEB SOLN NEB SCH ×6 (00:05→20:00)
[2019-12-13] MEDS: NYSTATIN 500,000 U/5 ML SUSP UDC SS SCH ×5 (00:46→23:43)
[2019-12-13] MEDS: methylPREDNISolone 40MG 1ML VIAL IV SCH ×3 (00:47→17:05)
[2019-12-13 06:00] VITALS: BP 160/84
[2019-12-13] MEDS: LEVOTHYROXINE 50MCG TABLET (0.05MG) PO SCH (06:09)
[2019-12-13 06:12] LABS: HEMATOCRIT 43.6 % (42.0-52.0); HEMOGLOBIN 13.8 g/dl (13.5-17.5); MEAN CORPUSCULAR HEMOGLOBIN 28.9 pg (27.0-33.0); MEAN CORPUSCULAR HGB CONC 31.7 g/dl (32.0-36.5); MEAN CORPUSCULAR VOLUME 91.4 fl (80.0-96.0); PLATELET COUNT, AUTOMATED 252 10^3/uL (150-450); RED BLOOD COUNT 4.77 10^6/uL (4.30-6.10); WHITE BLOOD COUNT 17.1 10^3/uL (4.0-10.0)
[2019-12-13 06:35] LABS: BLOOD UREA NITROGEN 44 MG/DL (7-18); CALCIUM LEVEL 8.7 MG/DL (8.8-10.2); CARBON DIOXIDE LEVEL 33 MEQ/L (21-32); CHLORIDE LEVEL 100 MEQ/L (98-107); CREATININE FOR GFR 1.03 MG/DL (0.70-1.30); GLOMERULAR FILTRATION RATE > 60.0 (>35); GLUCOSE, FASTING 115 MG/DL (70-100); POTASSIUM SERUM 4.5 MEQ/L (3.5-5.1); SODIUM LEVEL 138 MEQ/L (136-145)
[2019-12-13 06:36] LABS: LYMPHOCYTES 8 % (16-44); MONOCYTES 2 % (0-5); NEUTROPHILS 90 % (28-66); PLATELET ESTIMATE NORMAL (NORMAL)
[2019-12-13 07:45] VITALS: O2SAT 96
[2019-12-13] MEDS: BUDESONIDE 0.5 MG/2 ML INHALATION SUSPENSION INH SCH ×2 (07:45→20:14)
[2019-12-13] MEDS: FORMOTEROL FUMARATE 20 MCG/2 ML INHALATION SOLUTION (PERFOROMIST) INH SCH ×2 (07:45→20:14)
[2019-12-13] MEDS: APIXABAN 5 MG TAB (ELIQUIS) PO SCH ×2 (08:19→22:09)
[2019-12-13] MEDS: rOPINIRole 1MG TAB PO SCH ×3 (08:19→22:10)
[2019-12-13] MEDS: DOCUSATE SODIUM 100 MG CAP PO SCH ×2 (08:20→22:09)
[2019-12-13] MEDS: GABAPENTIN 300 MG CAP PO SCH (08:20)
[2019-12-13] MEDS: QUEtiapine FUMARATE 25 MG TAB PO SCH ×2 (08:20→22:10)
[2019-12-13] MEDS: hydrOXYzine 25 MG TAB PO SCH ×2 (08:20→22:09)
[2019-12-13] MEDS: hydroCHLOROthiazide 12.5 MG CAPSULE PO SCH (08:20)
[2019-12-13] MEDS: OMEPRAZOLE 20 MG CAP PO SCH ×2 (08:20→22:08)
[2019-12-13] MEDS: AZITHROMYCIN 250MG TABLET PO SCH (08:20)
[2019-12-13] MEDS: LOSARTAN 25 MG TAB PO SCH (08:21)
[2019-12-13] MEDS: ACETAMINOPHEN 500 MG TAB PO SCH ×2 (08:21→22:08)
--- NOTE | 2019-12-13 13:53 | IPNPDOC ---
Text Note Date of Service The patient was seen on 12/13/19. NOTE Subjective: Pt notes dyspnea has improved since yesterday. Ambulating more to day. Denies CP/palpitations. Objective: Vitals: (see below) General: No acute distress, laying comfortably in bed. HEENT: Moist mucous membranes. Neck: No JVD or lymphadenopathy Cardiac: RRR, No murmurs Pulm: Exp wheezing b/l. No rhonchi, stridor, or use of accessory muscles. Abd: NT/ND + BS Ext: No edema or cyanosis Labs (see below) Images: CT Chest FINDINGS: Lungs: Diffuse bilateral bronchial wall thickening. Multifocal small bronchial mucous plugging. Minimal right upper lobe apical clustered micronodularity consistent with bronchiolitis is redemonstrated. Mild bilateral upper lung predominant emphysema redemonstrated. Bilateral scattered pulmonary bullae. Large compressive atelectasis of the left lower lobe secondary to the hiatal hernia. Left lower lobe superior segment spiculated solid noncalcified nodule measuring 10 mm in average diameter (sagittal series 205, image 86). This was obscured in an area of motion on the prior examination. It is unclear if it represents a true pulmonary nodule or an area of subsegmental scarring/atelectasis. Left upper lobe calcified pulmonary nodule consistent with a benign remote granuloma is redemonstrated. Pleural space: New minimal dependently layering low-attenuation left pleural effusion. No right pleural effusion. No pneumothorax. Heart: Coronary arterial atherosclerotic calcifications are present. No pericardial effusion. Heart size is within normal limits. Mediastinal space: Very large esophageal hiatal hernia containing an intrathoracic stomach is redemonstrated. The hiatal hernia again contains a portion of the transverse colon. Pulmonary arteries: The main pulmonary arterial trunk is not enlarged. Aorta: Tortuous thoracic aorta. Moderate aortic atherosclerosis. Unchanged fusiform dilatation of the proximal descending thoracic aorta measuring 3.6 cm in diameter. Lymph nodes: No enlarged lymph nodes. Gallbladder and bile ducts: Cholecystectomy clips. Pancreas: Atrophic pancreas. Adrenals: Right adrenal 1.5 cm fat attenuation nodule with very small peripheral calcifications is redemonstrated and may represent an adrenal myelolipoma or the findings may represent sequelae of remote adrenal infection or trauma. Kidneys and ureters: Indeterminate right kidney upper pole 1 cm round exophytic intermediate attenuation (39 Hounsfield units) lesion has unchanged size (series 202, image 113). Other hypoattenuating bilateral renal lesions consistent with simple-appearing cysts are redemonstrated. Bones/joints: Bilateral glenohumeral osteoarthritis. Right glenohumeral joint effusion. Multilevel degenerative spine disease. The right acromioclavicular joint is incompletely imaged. Erosions of the right distal clavicular head are redemonstrated. Right acromioclavicular joint effusion is incompletely imaged. 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 Soft tissues: Unchanged right subscapularis muscle atrophy. 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 IMPRESSION: 1. Pulmonary emphysema. Findings consistent with bronchitis and minimal bronchiolitis. 2. Left lower lobe superior segment 10 mm solid nodule versus an area of scarring/atelectasis. Further evaluation/follow-up is recommended. Consider CT Chest at 3 months, PET/CT, or biopsy. (Reference: Sheri) 3. Redemonstration of very large esophageal hiatal hernia containing an intrathoracic stomach an intrathoracic transverse colon. The hiatal hernia creates large compressive atelectasis of the left lower lobe. 4. New minimal left pleural effusion. 5. Please see the body of the report for other findings as described that are stable compared to 12/03/2019. Further evaluation of the right renal 1 cm indeterminate lesion is again recommended. A/P Acute COPD exacerbation due to viral resp tract infection recently methyl Prednisone, formoterol, duonebs, budesonide and albuterol Azithromycin - Solumedrol to 40mg IV 6hr--> Taper down to q12h Generalized weakness and deconditioning due to acute illness, increased work o breathing PT/OT/ARU screen Acute DVT on Eliquis Chronic respiratory failure with hypoxia will reduce oxygen to 2 liters. Right shoulder pain and swelling Chronic rotator cuff tear with bursitis, OA MRI noted has OA, bursitis and tear of supraspinatus tendon all looks chronic patient reports that at one time surgery was offered but was told high risk so he did not want to pursue it. discussed with ortho Dr Morales. Will refer to ortho clinic. pain controlled with tylenol, meloxicam, gabapentin, Narcotics. Hypertension continue losartan and HCTZ. Hyperlipidemia statin Restless legs ropinirole Depression Seroquel Hiatal hernia with bilateral lower lobe compressive atelectasis. Abn CT Chest (see above) - will need close f/u with PCP for repeat imaging and close monitoring. DVT Prophy: Eliquis Palliative care consult. VS,Fishbone, I+O VS, Fishbone, I+O Laboratory Tests 12/13/19 05:45 Vital Signs Date Time Temp Pulse Resp B/P (MAP) Pulse Ox O2 Delivery O2 Flow Rate FiO2 12/13/19 08:48 2.0 12/13/19 08:21 160/84 12/13/19 07:45 97 12/13/19 07:45 96 Nasal Cannula 12/13/19 06:00 98.0 18 I&O- Last 24 Hours up to 6 AM 12/13/19 06:00 Intake Total 1080 ml Output Total 0 ml Balance 1080 ml ROBIN PARDO MD Dec 13, 2019 13:52
[2019-12-13 14:00] VITALS: BP 160/78
[2019-12-13 22:00] VITALS: BP 128/72
[2019-12-13] MEDS: SIMVASTATIN 20 MG TAB PO SCH (22:08)
[2019-12-14] MEDS: ALBUTEROL SULFATE 2.5 MG/0.5 ML INH NEB SOLN NEB SCH ×4 (00:13→11:50)
[2019-12-14] MEDS: LEVOTHYROXINE 50MCG TABLET (0.05MG) PO SCH (05:19)
[2019-12-14] MEDS: methylPREDNISolone 40MG 1ML VIAL IV SCH (05:19)
[2019-12-14] MEDS: NYSTATIN 500,000 U/5 ML SUSP UDC SS SCH ×2 (05:19→12:02)
[2019-12-14 05:55] LABS: HEMATOCRIT 41.4 % (42.0-52.0); HEMOGLOBIN 13.1 g/dl (13.5-17.5); MEAN CORPUSCULAR HEMOGLOBIN 28.8 pg (27.0-33.0); MEAN CORPUSCULAR HGB CONC 31.6 g/dl (32.0-36.5); PLATELET COUNT, AUTOMATED 237 10^3/uL (150-450); RED BLOOD COUNT 4.55 10^6/uL (4.30-6.10); WHITE BLOOD COUNT 17.6 10^3/uL (4.0-10.0)
[2019-12-14 06:00] VITALS: BP 140/76
[2019-12-14 06:20] LABS: LYMPHOCYTES 7 % (16-44); MONOCYTES 5 % (0-5); NEUTROPHILS 88 % (28-66); PLATELET ESTIMATE NORMAL (NORMAL)
[2019-12-14 06:21] LABS: BLOOD UREA NITROGEN 47 MG/DL (7-18); CALCIUM LEVEL 8.5 MG/DL (8.8-10.2); CARBON DIOXIDE LEVEL 34 MEQ/L (21-32); CHLORIDE LEVEL 99 MEQ/L (98-107); CREATININE FOR GFR 0.97 MG/DL (0.70-1.30); GLOMERULAR FILTRATION RATE > 60.0 (>35); GLUCOSE, FASTING 92 MG/DL (70-100); POTASSIUM SERUM 4.4 MEQ/L (3.5-5.1); SODIUM LEVEL 136 MEQ/L (136-145)
[2019-12-14] MEDS: BUDESONIDE 0.5 MG/2 ML INHALATION SUSPENSION INH SCH (07:51)
[2019-12-14] MEDS: FORMOTEROL FUMARATE 20 MCG/2 ML INHALATION SOLUTION (PERFOROMIST) INH SCH (07:51)
[2019-12-14] MEDS: AZITHROMYCIN 250MG TABLET PO SCH (08:17)
[2019-12-14 08:18] VITALS: BP 140/76
[2019-12-14] MEDS: hydrOXYzine 25 MG TAB PO SCH (08:18)
[2019-12-14] MEDS: QUEtiapine FUMARATE 25 MG TAB PO SCH (08:18)
[2019-12-14] MEDS: GABAPENTIN 300 MG CAP PO SCH (08:18)
[2019-12-14] MEDS: LOSARTAN 25 MG TAB PO SCH (08:18)
[2019-12-14] MEDS: hydroCHLOROthiazide 12.5 MG CAPSULE PO SCH (08:18)
[2019-12-14] MEDS: OMEPRAZOLE 20 MG CAP PO SCH (08:18)
[2019-12-14] MEDS: rOPINIRole 1MG TAB PO SCH (08:18)
[2019-12-14] MEDS: APIXABAN 5 MG TAB (ELIQUIS) PO SCH (08:18)
[2019-12-14] MEDS: ACETAMINOPHEN 500 MG TAB PO SCH (08:19)
[2019-12-14] MEDS: DOCUSATE SODIUM 100 MG CAP PO SCH (09:00)
[2019-12-14] MEDS ORDERED: PRED10TA2 PO (10:32)
--- NOTE | 2019-12-14 10:42 | DS.PDOC ---
Discharge Summary General Date of Admission Dec 09, 2019 at 10:31 Date of Discharge 12/14/19 Attending Physician: ROBIN PARDO MD Discharge Summary PROCEDURES PERFORMED DURING STAY: None. ADMITTING/DISCHARGE DIAGNOSES: 1. Acute COPD exacerbation. 2. H/o severe emphysema COMPLICATIONS/CHIEF COMPLAINT: SOB HISTORY OF PRESENT ILLNESS/HOSPITAL COURSE: 89 year old male with COPD/Asthma exacerbation due to recent rhinovirus infection on 12/03/19 and acute left leg DVT was discharged from the hospital on 12/06/19 comes back today at the urging of daughter and visiting nurse as he was noted to have increased wheezing and SOB. He uses 3 L of oxygen at home for many years. Patient himself denied any new worsening of SOB. He says his breathing is always bad and has been for many years and he has to rest after a few feet to catch his breath. He does report that is wheezing was a little worse this morning. Denied any fever or chills, denied any increased swelling of the legs. He complains of right shoulder pain which has been there for many years and his movement there is restricted. He rates the pain as 5/10 dull aching in nature denied any warmth or redness at the right shoulder but does say that it is deformed and always swollen than the other. He was admitted for COPD exa cerbation. Pt was started on IV solumedrol, nebs, azithromycin and tolerated well. He is now ambulating 200ft. Exp wheezing improved. Transitioned to prednisone. Pt hemodynamically stable and will be d/c home with family and prednisone taper. Discussed with daughter who is agreeable. Acute COPD exacerbation due to viral resp tract infection recently methyl Prednisone, formoterol, duonebs, budesonide and albuterol Azithromycin - Solumedrol to 40mg IV 6hr--> Taper down to q12h--> Prednisone. Generalized weakness and deconditioning due to acute illness, increased work o breathing PT/OT/ARU screen Acute DVT on Eliquis Chronic respiratory failure with hypoxia will reduce oxygen to 2 liters. Right shoulder pain and swelling Chronic rotator cuff tear with bursitis, OA MRI noted has OA, bursitis and tear of supraspinatus tendon all looks chronic patient reports that at one time surgery was offered but was told high risk so he did not want to pursue it. discussed with ortho Dr Morales. Will refer to ortho clinic. pain controlled with tylenol, meloxicam, gabapentin, Narcotics. Hypertension continue losartan and HCTZ. Hyperlipidemia statin Restless legs ropinirole Depression Seroquel Hiatal hernia with bilateral lower lobe compressive atelectasis. Abn CT Chest (see above) - will need close f/u with PCP for repeat imaging and close monitoring. DISCHARGE MEDICATIONS: Please see below. ALLERGIES: Please see below. PHYSICAL EXAMINATION ON DISCHARGE: Vitals: (see below) General: No acute distress, laying comfortably in bed. HEENT: Moist mucous membranes. Neck: No JVD or lymphadenopathy Cardiac: RRR, No murmurs Pulm: Exp wheezing significantly improved. No rhonchi, stridor, or use of accessory muscles. Abd: NT/ND + BS Ext: No edema or cyanosis LABORATORY DATA: Please see below. PROGNOSIS: Poor given severe COPD and comorbidities. ACTIVITY: As tolerated. DIET: COPD diet DISCHARGE PLAN/DISPOSITION: Home with home services. DISCHARGE INSTRUCTIONS: 1. F/u with PCP, Pulmonary in 1 week. Return to ED if symptoms worsen. DISCHARGE CONDITION: Stable. TIME SPENT ON DISCHARGE: 37 minutes. Vital Signs/I&Os Vital Signs Date Time Temp Pulse Resp B/P (MAP) Pulse Ox O2 Delivery O2 Flow Rate FiO2 12/14/19 09:00 2.0 12/14/19 08:18 140/76 12/14/19 06:00 97.9 75 16 99 Nasal Cannula I&O- Last 24 Hours up to 6 AM 12/14/19 06:00 Intake Total 1990 ml Balance 1990 ml Laboratory Data Labs 24H Laboratory Tests 2 12/14/19 05:31: Immature Granulocyte % (Auto) , Neutrophils (%) (Auto) , Nucleated Red Blood Cells % (auto) 0.0, Neutrophils 88H, Lymphocytes (Manual) 7L, Monocytes (Manual) 5, Red Blood Cell Morphology NORMAL, Platelet Estimate NORMAL, Anion Gap 3L, Glomerular Filtration Rate > 60.0, Calcium Level 8.5L CBC/BMP Laboratory Tests 12/14/19 05:31 Microbiology Microbiology 12/08/19 Blood Culture - Final, Complete NO GROWTH AFTER 5 DAYS 12/08/19 Blood Culture - Final, Complete NO GROWTH AFTER 5 DAYS Discharge Medications Scheduled Acetaminophen (Acetaminophen) 500 Mg Tablet, 1,000 MG PO BID, (Reported) Apixaban (Eliquis) 5 Mg Tablet, 10 MG PO BID, (Reported) 10MG BID FOR 3 DAYS. DECREASE TO 5MG BID ON 12/10/19 Arformoterol Tartrate (Brovana) 15 Mcg/2 Ml Vial.neb, 1 VIAL NEB BID, (Reported) Gabapentin (Gabapentin) 300 Mg Capsule, 300 MG PO DAILY, (Reported) Hydroxyzine HCl (Hydroxyzine HCl) 25 Mg Tablet, 25 MG PO BID, (Reported) Levothyroxine Sodium (Levothyroxine Sodium) 50 Mcg Tablet, 50 MCG PO DAILY, (Reported) Losartan Potassium (Losartan Potassium) 25 Mg Tablet, 25 MG PO DAILY, (Reported) Omeprazole (Omeprazole) 20 Mg Capsule.dr, 20 MG PO BID, (Reported) Prednisone (Prednisone) 10 Mg Tablet, 1 TAB PO DAILY Take 4 tab daily for 5 days, then 3 tab daily for 5 days, then 2tab daily for 5 days, then 1 tab daily for 5 days, then stop. Quetiapine Fumarate (Quetiapine Fumarate) 25 Mg Tablet, 25 MG PO DAILY, (Reported) Quetiapine Fumarate (Quetiapine Fumarate) 25 Mg Tablet, 50 MG PO QHS, (Reported) Ropinirole HCl (Ropinirole HCl) 2 Mg Tablet, 2 MG PO TID, (Reported) Simvastatin (Simvastatin) 20 Mg Tablet, 20 MG PO QHS, (Reported) Scheduled PRN Oxycodone HCl/Acetaminophen (Oxycodone-Acetaminophen 5-325) 1 Each Tablet, 1 TAB PO PRN PRN for PAIN OR DYSPNEA, (Reported) Allergies Coded Allergies: codeine (Verified Allergy, Unknown, 12/03/19) ROBIN PARDO MD Dec 14, 2019 10:42
[2019-12-14 14:00] VITALS: BP 137/79
[2019-12-15] MEDS ORDERED: predniSONE 20 MG TAB PO SCH (09:00)
== END 2019-12-14 16:30 | disposition home health service (06) | DRG 191 ==
LOC: M ED 12:26 → EDBD 12:26 → M ED INP 12:27 → ENRESERV 16:18 → M MS5PR 16:50 → OBSVTOIN 12-09 10:31
PROVIDERS: ADMIT Internal Medicine Nephrology; ATTEND Internal Medicine
DX: J44.1 Chronic obstructive pulmonary disease with (acute) exacerbation (principal); J96.11 Chronic respiratory failure with hypoxia; J98.11 Atelectasis; M75.51 Bursitis of right shoulder; I10 Essential (primary) hypertension; E78.5 Hyperlipidemia, unspecified; G25.81 Restless legs syndrome; F41.9 Anxiety disorder, unspecified; G47.00 Insomnia, unspecified; M54.32 Sciatica, left side; F32.9 Major depressive disorder, single episode, unspecified; M17.0 Bilateral primary osteoarthritis of knee; K44.9 Diaphragmatic hernia without obstruction or gangrene; R91.8 Other nonspecific abnormal finding of lung field; M19.011 Primary osteoarthritis, right shoulder; M19.012 Primary osteoarthritis, left shoulder; Z96.652 Presence of left artificial knee joint; Z87.891 Personal history of nicotine dependence; Z99.81 Dependence on supplemental oxygen; Z85.46 Personal history of malignant neoplasm of prostate; Z79.01 Long term (current) use of anticoagulants; Z79.899 Other long term (current) drug therapy; Z79.52 Long term (current) use of systemic steroids; Z88.5 Allergy status to narcotic agent; Z89.022 Acquired absence of left finger(s); Z86.718 Personal history of other venous thrombosis and embolism